=== PATIENT | male | born 1955 | race Caucasian/White ===

== ENCOUNTER → 2021-08-19 10:42 | Outpatient (CLI) | payer SELFPAY ==
[2021-08-19 12:09] LABS: COVID19 -Nasal RAPID Negative (Negative)
== END ==
PROVIDERS: Referring Provider Nurse Practitioner Family; Visit Provider Nurse Practitioner Family
DX: Z20.822 Contact with and (suspected) exposure to COVID-19 (principal)
CPT/HCPCS: 87635

== ENCOUNTER 2021-08-19 11:19 | Observation (INO) | payer OTHER, SELFPAY ==
[2021-08-19] VITALS (29 sets, daily range): BP systolic 145–202; BP diastolic 93–134; PULSE 86–115; RESP 14–38; TEMP 36.2–37.1; O2SAT 91–100; BMI 30.2
--- NOTE | 2021-08-19 11:44 | DI.RAD.S_ITS ---
PROCEDURE: XR CHEST 2V INDICATIONS: shortness of breath TECHNIQUE: 2 views of the chest were acquired. COMPARISON: None. FINDINGS: Surgical changes and devices: None. Lungs and pleura: Prominence of the pulmonary vasculature, which may reflect congestion. No consolidation, pleural effusions or pneumothorax. Mediastinum: Enlargement of cardiac silhouette, compatible cardiomegaly. Calcified atheromatous change of the aorta. Bones and chest wall: No suspicious bony abnormalities. Soft tissues appear unremarkable. IMPRESSION: Cardiomegaly with pulmonary vascular congestion. Dictated by: Mika Tanner M.D. on 08/19/2021 at 12:52 Approved by: Mika Tanner M.D. on 08/19/2021 at 12:53
[2021-08-19 12:02] LABS: Add Manual Diff / Slide Review NO; Basophils Absolute Auto 0 /uL (0-100); Basophils Percent Auto 0.4 % (0-2); Eosinophils Absolute Auto 100 /uL (0-450); Eosinophils Percent Auto 1.1 % (2-4); Hematocrit 45.9 % (41-53); Hemoglobin 14.9 g/dL (13.5-17.5); Lymphocytes Absolute Auto 1400 /uL (1100-4500); Lymphocytes Percent Auto 17.9 % (25-40); Mean Corpuscular HGB Conc 32.5 % (30-36); Mean Corpuscular Hemoglobin 29.2 PG (26-34); Mean Corpuscular Volume 89.9 fL (80-100); Monocytes Absolute Auto 900 /uL (0-900); Monocytes Percent Auto 11.3 % (3-14); Neutrophils Absolute Auto 5400 /uL (1500-7000); Neutrophils Percent Auto 69.3 % (50-75); Platelet Count 196 X10^3/uL (150-400); Red Blood Cell Count 5.11 X10^6/uL (4.5-5.9); Red Cell Distribution Width 14.6 % (11.6-14.8); White Blood Cell Count 7.8 X10^3/uL (4.5-11.0)
[2021-08-19 12:21] LABS: Alanine Aminotransferase 82 IU/L (<50); Albumin 4.5 g/dL (3.5-5.0); Albumin Globulin Ratio 1.5 (1.0-2.8); Alkaline Phosphatase 77 U/L (38-126); Aspartate Aminotransferase 78 IU/L (17-59); BUN Creatinine Ratio 21.4 (6-22); Bilirubin Total 0.7 mg/dL (0.2-1.3); Blood Urea Nitrogen 22 mg/dL (9-20); Calcium 9.4 mg/dL (8.4-10.2); Carbon Dioxide 28 mmol/L (22-32); Chloride 102 mmol/L (98-107); Estimated Glomerular Filt Rate > 60.0 mL/min (>60); Globulin 3.1 g/dL (1.7-4.1); Glucose 110 mg/dL (80-110); HEMOLYSIS < 15 (0-50); Potassium 4.4 mmol/L (3.4-5.1); Sodium 139 mmol/L (137-145); Total Protein 7.6 g/dL (6.3-8.2)
[2021-08-19 12:22] LABS: Lactate (Lactic Acid) 1.1 mmol/L (0.7-2.1)
[2021-08-19 12:29] LABS: NT-proBNP (BNP-Adult 18+) 4210 pg/mL (<125)
[2021-08-19 12:31] LABS: COVID19 -Nasal RAPID Negative (Negative)
--- NOTE | 2021-08-19 12:57 | ED.SOB ---
HPI - SOB/Dyspnea <Lynette Segal PA-C - Last Filed: 08/19/21 19:02> General Chief Complaint: Shortness of Breath/Dyspnea Stated Complaint: Trouble breathing, high BP Time Seen by Provider: 08/19/21 12:03 Source: patient Mode of arrival: Ambulatory Limitations: no limitations History of Present Illness HPI Narrative: 66-year-old male with no reported past medical history, presents to the ED with 5 days of shortness of breath. Patient states that he has not seen a doctor the last 20 years, has experienced worsening shortness of breath over the last 2 years, significantly worse in the last 4-5 days. Patient also endorses bilateral leg swelling, right greater than left. Denies fever, chills, chest pain, nausea, vomiting, abdominal pain, dysuria, flank pain, lightheadedness, dizziness, syncope. Patient states that he uses a albuterol inhaler 2 times daily for wheezing, which is given to him by someone else. He reports minimal relief from the albuterol. Patient was a long-time smoker for 30 years, quit 20 years ago. Related Data Home Medications Medication Instructions Recorded Confirmed No Known Home Medications 08/19/21 08/19/21 Allergies Allergy/AdvReac Type Severity Reaction Status Date / Time No Known Drug Allergies Allergy Verified 08/19/21 11:31 Review of Systems <Lynette Segal PA-C - Last Filed: 08/19/21 19:02> Constitutional Constitutional: Denies chills, Reports fatigue, Denies fever(s), Denies frequent falls, Denies lethargy and Denies weakness Eyes Eyes: Denies change in vision, Denies eye discharge, Denies irritation and Denies loss of vision ENT Ears, Nose, Mouth, and Throat: Denies change in voice, Denies dizziness, Denies neck pain, Denies sore throat and Denies throat swelling Cardiovascular Cardiovascular: Denies chest pain, Denies irregular heart rhythm, Reports lightheadedness, Denies palpitations, Reports dyspnea, Reports dyspnea on exertion and Reports orthopnea Respiratory Respiratory: Reports cough (Dry cough), Reports dyspnea, Reports dyspnea on exertion and Denies wheezing Gastrointestinal Gastrointestinal: Denies abdominal pain, Denies change in bowel habits, Denies diarrhea, Denies nausea and Denies vomiting Musculoskeletal Musculoskeletal: Denies neck pain and Denies numbness Integumentary/Breasts Skin/Breast: Denies pruritus, Denies erythema, Denies rash and Denies wounds Neurologic Neurologic: Denies behavioral changes, Denies confusion, Denies dizziness, Denies frequent falls, Denies loss of vision, Denies numbness and Denies weakness Psychiatric Psychiatric: Denies anxiety, Denies behavioral changes, Denies confusion, Denies depression, Denies homicidal ideation and Denies suicidal ideation Endocrine Endocrine: Reports fatigue, Denies flushing and Denies palpitations Hematologic/Lymphatic Hematologic/Lymphatic: Denies easy bruising Allergic/Immunologic Allergic/Immunologic: Denies urticaria, Denies throat swelling and Denies wheezing Patient History <Lynette Segal PA-C - Last Filed: 08/19/21 19:02> Social History Smoking Status: Unknown if ever smoked Smoking Status: Unknown if ever smoked alcohol intake frequency: 3 or more drinks per day Substance Use Type: marijuana Exam <Lynette Segal PA-C - Last Filed: 08/19/21 19:02> Narrative Exam Narrative: Patient sitting upright in bed, some work of breathing on room air. Able to speak in complete full sentences Initial Vital Signs Initial Vital Signs: Vital Signs Temperature 98.8 F 08/19/21 11:29 Pulse Rate 110 H 08/19/21 11:29 Respiratory Rate 25 H 08/19/21 11:29 Blood Pressure 182/93 H 08/19/21 11:29 Pulse Oximetry 94 08/19/21 11:29 Const General: cooperative HENMT Head: normocephalic and atraumatic Ears: external ears normal and TM's normal bilaterally Nose: external nose normal and No nasal discharge Face and sinus: sinuses nontender, face symmetric, no sinus tenderness and No dry mucous membranes Mouth: oral mucosae normal and moist mucous membranes Teeth and gingiva: dentition normal Throat: tonsils normal and uvula midline Eyes General: appearance normal, both eyes and all related structures Eyelids: eyelids normal Conjunctivae: conjunctivae normal Sclera: sclerae normal Pupils: PERRL EOM: EOM intact bilaterally Neck Neck: normal visual inspection, trachea midline, No lymphadenopathy, No midline deformity and No JVD Lymphatic: No lymphedema Chest Chest: normal inspection of the chest Resp Effort & Inspection: normal respiratory effort, able to speak in complete sentences, no respiratory distress and no use of accessory muscles Auscultation: clear to auscultation bilaterally, no rales, no rhonchi and no wheezes Other: Bilateral breath sounds, moving air in and out, no wheezing, no crackles. Cardio Rate: tachycardic Rhythm: regular rhythm Heart Sounds: no click, no gallops, no murmurs and no rubs Pulses: normal peripheral pulses GI Inspection: non-distended Palpation: soft, no hepatosplenomegaly, No guarding, No pulsatile mass and No tender Auscultation: normal bowel sounds Back/Spine/Pelvis Back: No CVA tenderness Cervical Spine: cervical ROM normal and No pain with cervical ROM Thoracic/Lumbar Spine: thoracic and lumbar spine normal to inspection Skin General: no rashes or lesions noted, No jaundice and No petechiae Neuro General: patient alert, patient oriented x3, gait normal and no focal motor deficits Speech: speech normal Extrem General: full ROM, no clubbing, cyanosis or edema, no pedal edema and no calf tenderness Other: Pitting edema bilaterally, right greater than left. Neurovascularly intact. Psych Appearance: well kempt Mental Status: mental status grossly normal Attitude: cooperative Thought Content: normal and suicidality Judgment: judgment good <Jonah Farrell DO - Last Filed: 08/19/21 19:05> Initial Vital Signs Initial Vital Signs: Vital Signs Temperature 98.8 F 08/19/21 11:29 Pulse Rate 110 H 08/19/21 11:29 Respiratory Rate 25 H 08/19/21 11:29 Blood Pressure 182/93 H 08/19/21 11:29 Pulse Oximetry 94 08/19/21 11:29 Course <Lynette Segal PA-C - Last Filed: 08/19/21 19:02> Course Course Narrative: NT proBNP elevated to 4210 indicative of acute CHF. Will trial a treatment with albuterol, ipratropium via nebulizer. Will give Lasix 40 mg IV. Troponin elevated to 0.064, possibly NSTEMI. Ordered 325 mg aspirin PO. Patient is negative 2 L post the Lasix. Chest x-ray shows pulmonary vascular congestion. CT shows possible emphysema. No evidence of DVT or PE on ultrasound or CT. Cardiology Dr. Alexander consulted. Cardiology favors a diagnosis of CHF over NSTEMI, given patient's workup, symptoms. Recommendation to continue diuresis with Lasix, echo, possibly stress test, trend stroke, trend electrolytes, admit to inpatient. Hospitalist Dr. Willoughby consulted, patient will be admitted to inpatient. Orders Ordered: ED Orders 08/19/21 11:43 EKG-12 Lead Stat 08/19/21 11:44 XR chest 2V Stat RT Consult Eval and Treat Now 08/19/21 11:50 Complete Blood Count AUTO DIFF Stat Comprehensive Metabolic Panel Stat D Dimer Stat Lactate (Lactic Acid) Stat NT-proBNP (BNP-Adult 18+) Stat Troponin I Stat 08/19/21 12:05 COVID19 -Nasal swab/Pre-Proc Stat 08/19/21 13:26 CT angio chest PE protocol Stat 08/19/21 13:27 US periph venous low extrem bi Stat 08/19/21 18:47 Troponin I Stat Discontinued Medications Albuterol/Ipratropium (Albuterol/Ipratropium 3 Ml Ampul) 3 ml INH NOW ONE Stop: 08/19/21 12:52 Last Admin: 08/19/21 13:26 Dose: 3 ml Documented by: ARMAND Aspirin (Aspirin 325 Mg Tablet) 325 mg PO NOW ONE Stop: 08/19/21 13:39 Last Admin: 08/19/21 14:29 Dose: 325 mg Documented by: MATT Furosemide (Furosemide 40 Mg/4 Ml Vial) 40 mg IV NOW ONE Stop: 08/19/21 12:52 Last Admin: 08/19/21 13:04 Dose: 40 mg Documented by: WHITNEY Vital Signs Vital signs: Vital Signs - 8 hr 08/19/21 11:29 08/19/21 11:39 08/19/21 11:55 Temperature 98.8 F Pulse Rate 110 H 115 H 110 H Respiratory Rate 25 H 14 Blood Pressure 182/93 H 180/98 H Pulse Oximetry 94 94 97 08/19/21 12:00 08/19/21 12:23 08/19/21 12:30 Temperature Pulse Rate 106 H 109 H 107 H Respiratory Rate 26 H 23 Blood Pressure 189/104 H 176/107 H 170/96 H Pulse Oximetry 98 98 99 08/19/21 13:00 08/19/21 13:30 08/19/21 13:33 Temperature Pulse Rate 106 H 107 H 106 H Respiratory Rate 14 31 H 18 Blood Pressure 177/134 H 202/125 H Pulse Oximetry 98 97 97 08/19/21 14:26 08/19/21 14:30 Temperature Pulse Rate 101 H 86 Respiratory Rate Blood Pressure Pulse Oximetry 97 94 <Jonah Farrell DO - Last Filed: 08/19/21 19:05> Orders Ordered: ED Orders 08/19/21 11:43 EKG-12 Lead Stat 08/19/21 11:44 XR chest 2V Stat RT Consult Eval and Treat Now 08/19/21 11:50 Complete Blood Count AUTO DIFF Stat Comprehensive Metabolic Panel Stat D Dimer Stat Lactate (Lactic Acid) Stat NT-proBNP (BNP-Adult 18+) Stat Troponin I Stat 08/19/21 12:05 COVID19 -Nasal swab/Pre-Proc Stat 08/19/21 13:26 CT angio chest PE protocol Stat 08/19/21 13:27 US periph venous low extrem bi Stat 08/19/21 18:47 Troponin I Stat Discontinued Medications Albuterol/Ipratropium (Albuterol/Ipratropium 3 Ml Ampul) 3 ml INH NOW ONE Stop: 08/19/21 12:52 Last Admin: 08/19/21 13:26 Dose: 3 ml Documented by: ARMAND Aspirin (Aspirin 325 Mg Tablet) 325 mg PO NOW ONE Stop: 08/19/21 13:39 Last Admin: 08/19/21 14:29 Dose: 325 mg Documented by: MATT Furosemide (Furosemide 40 Mg/4 Ml Vial) 40 mg IV NOW ONE Stop: 08/19/21 12:52 Last Admin: 08/19/21 13:04 Dose: 40 mg Documented by: WHITNEY Vital Signs Vital signs: Vital Signs - 8 hr 08/19/21 11:29 08/19/21 11:39 08/19/21 11:55 Temperature 98.8 F Pulse Rate 110 H 115 H 110 H Respiratory Rate 25 H 14 Blood Pressure 182/93 H 180/98 H Pulse Oximetry 94 94 97 08/19/21 12:00 08/19/21 12:23 08/19/21 12:30 Temperature Pulse Rate 106 H 109 H 107 H Respiratory Rate 26 H 23 Blood Pressure 189/104 H 176/107 H 170/96 H Pulse Oximetry 98 98 99 08/19/21 13:00 08/19/21 13:30 08/19/21 13:33 Temperature Pulse Rate 106 H 107 H 106 H Respiratory Rate 14 31 H 18 Blood Pressure 177/134 H 202/125 H Pulse Oximetry 98 97 97 08/19/21 14:26 08/19/21 14:30 Temperature Pulse Rate 101 H 86 Respiratory Rate Blood Pressure Pulse Oximetry 97 94 MDM - SOB/Dyspnea <Hyma CRISSY Segal - Last Filed: 08/19/21 19:02> Lab Data Attestation: I reviewed the patient's lab results. Lab results narrative: NT proBNP elevated to 4210. Troponin elevated to 0.064 Result diagrams: 08/19/21 11:50 08/19/21 11:50 Labs: Lab Results 08/19/21 08/19/21 08/19/21 Range/Units 11:50 11:50 11:50 WBC 7.8 (4.5-11.0) X10^3/uL RBC 5.11 (4.5-5.9) X10^6/uL Hgb 14.9 (13.5-17.5) g/dL Hct 45.9 (41-53) % MCV 89.9 (80-100) fL MCH 29.2 (26-34) PG MCHC 32.5 (30-36) % RDW 14.6 (11.6-14.8) % Plt Count 196 (150-400) X10^3/uL Neut % (Auto) 69.3 (50-75) % Lymph % (Auto) 17.9 L (25-40) % Lanier % (Auto) 11.3 (3-14) % Eos % (Auto) 1.1 L (2-4) % Baso % (Auto) 0.4 (0-2) % Neut # (Auto) 5400 (8832-8226) /uL Lymph # (Auto) 1400 (1088-5428) /uL Lanier # (Auto) 900 (0-900) /uL Eos # (Auto) 100 (0-450) /uL Baso # (Auto) 0 (0-100) /uL D-Dimer (<230) ng/mL Sodium 139 (137-145) mmol/L Potassium 4.4 (3.4-5.1) mmol/L Chloride 102 (98-107) mmol/L Carbon Dioxide 28 (22-32) mmol/L BUN 22 H (9-20) mg/dL Creatinine 1.03 (0.66-1.25) mg/dL Estimated GFR > 60.0 (>60) mL/min BUN/Creatinine Ratio 21.4 (6-22) Glucose 110 (80-110) mg/dL Lactate 1.1 (0.7-2.1) mmol/L Calcium 9.4 (8.4-10.2) mg/dL Total Bilirubin 0.7 (0.2-1.3) mg/dL AST 78 H (17-59) IU/L ALT 82 H (<50) IU/L Alkaline Phosphatase 77 (38-126) U/L Troponin I (0.01-0.034) ng/mL NT-Pro-B Natriuret Pep 4210 H (<125) pg/mL Total Protein 7.6 (6.3-8.2) g/dL Albumin 4.5 (3.5-5.0) g/dL Globulin 3.1 (1.7-4.1) g/dL Albumin/Globulin Ratio 1.5 (1.0-2.8) SARS-CoV-2 (PCR) (Negative) 08/19/21 08/19/21 08/19/21 Range/Units 11:50 11:50 12:05 WBC (4.5-11.0) X10^3/uL RBC (4.5-5.9) X10^6/uL Hgb (13.5-17.5) g/dL Hct (41-53) % MCV (80-100) fL MCH (26-34) PG MCHC (30-36) % RDW (11.6-14.8) % Plt Count (150-400) X10^3/uL Neut % (Auto) (50-75) % Lymph % (Auto) (25-40) % Lanier % (Auto) (3-14) % Eos % (Auto) (2-4) % Baso % (Auto) (0-2) % Neut # (Auto) (5225-7664) /uL Lymph # (Auto) (4616-6391) /uL Lanier # (Auto) (0-900) /uL Eos # (Auto) (0-450) /uL Baso # (Auto) (0-100) /uL D-Dimer 483 H (<230) ng/mL Sodium (137-145) mmol/L Potassium (3.4-5.1) mmol/L Chloride (98-107) mmol/L Carbon Dioxide (22-32) mmol/L BUN (9-20) mg/dL Creatinine (0.66-1.25) mg/dL Estimated GFR (>60) mL/min BUN/Creatinine Ratio (6-22) Glucose (80-110) mg/dL Lactate (0.7-2.1) mmol/L Calcium (8.4-10.2) mg/dL Total Bilirubin (0.2-1.3) mg/dL AST (17-59) IU/L ALT (<50) IU/L Alkaline Phosphatase (38-126) U/L Troponin I 0.064 H (0.01-0.034) ng/mL NT-Pro-B Natriuret Pep (<125) pg/mL Total Protein (6.3-8.2) g/dL Albumin (3.5-5.0) g/dL Globulin (1.7-4.1) g/dL Albumin/Globulin Ratio (1.0-2.8) SARS-CoV-2 (PCR) Negative (Negative) Imaging Data Chest x-ray: Radiologist's Impression: PROCEDURE:? XR CHEST 2V ? INDICATIONS:? shortness of breath ? TECHNIQUE:? 2 views of the chest were acquired.? ? COMPARISON:? None. ? FINDINGS:? ? Surgical changes and devices:? None.? ? Lungs and pleura:? Prominence of the pulmonary vasculature, which may reflect congestion. ?No consolidation, pleural effusions or pneumothorax.? ? Mediastinum:? Enlargement of cardiac silhouette, compatible cardiomegaly.? Calcified atheromatous change of the aorta.? ? Bones and chest wall:? No suspicious bony abnormalities.? Soft tissues appear unremarkable.? ? IMPRESSION:? Cardiomegaly with pulmonary vascular congestion. ? ? Dictated by: Mika Tanner M.D. on 08/19/2021 at 12:52 ? ? Approved by: Mika Tanner M.D. on 08/19/2021 at 12:53 ? CT scan - chest: Radiologist's Impression: PROCEDURE:? CT ANGIO CHEST PE PROTOCOL ? INDICATIONS:? Shortness of breath ? TECHNIQUE:? After the administration of intravenous contrast, 2 mm thick sections acquired from the pulmonary apices to the posterior costophrenic angles.? 3-dimensional maximum intensity projection (MIP) coronal and sagittal reformats were then acquired through the thorax.? For radiation dose reduction, the following was used:? automated exposure control, adjustment of mA and/or kV according to patient size.? ? COMPARISON:? None. ? FINDINGS:? Image quality:? Excellent.? ? Pulmonary arteries:? Pulmonary arteries are normal in size, and demonstrate no intraluminal filling defects to suggest central pulmonary embolism.? ? Lungs and pleura:? [id number] centrilobular emphysema.? Lungs are clear.? No pleural effusions or pneumothorax.? Central and peripheral airways are patent.? ? Mediastinum:? Heart size is mildly enlarged, without pericardial effusion.? No mediastinal or hilar adenopathy.? The ascending aorta is aneurysmally dilated, measuring 4.6 cm. Esophagus is normal in caliber, without hiatal hernia.? ? Bones and chest wall:? No suspicious bony lesions.? Ribs and thoracic spine appear intact throughout.? Thyroid gland is unremarkable.? No axillary or supraclavicular adenopathy.? ? Abdomen:? Visualized upper abdominal solid organs appear normal in the early arterial phase of enhancement.? ? IMPRESSION:? ? 1. No evidence acute pulmonary emboli. ? 2. No evidence acute pulmonary process. ? 3. [id number] centrilobular emphysema. ? 3. Mild cardiomegaly. ? 4. Aneurysmal dilatation of the ascending aorta.? ? ? Dictated by: Jamel Morales M.D. on 08/19/2021 at 13:59 ? ? Approved by: Jamel Morales M.D. on 08/19/2021 at 14:07 ? US - DVT: Radiologist's Impression: PROCEDURE:? US PERIPH VENOUS LOW EXTREM BI ? INDICATIONS:? Shortness of breath; EDEMA ? TECHNIQUE:? Real-time imaging, as well as color and pulse Doppler interrogation, were performed of the deep veins of both legs from the inguinal ligament to the popliteal fossa.? ? COMPARISON:? [facility], CT, CT ANGIO CHEST PE PROTOCOL, 08/19/2021, 13:48. ? FINDINGS:? ? Right: The common femoral, femoral and popliteal veins are normally compressible, and free of intraluminal thrombus.? Color and pulse Doppler demonstrate normal phasic intravascular flow.? There is normal augmentation response to distal compression maneuver.? ? Left: The common femoral, femoral and popliteal veins are normally compressible, and free of intraluminal thrombus.? Color and pulse Doppler demonstrate normal phasic intravascular flow.? There is normal augmentation response to distal compression maneuver.? ? ? IMPRESSION:? ? Negative for deep venous thrombosis. ? ? Dictated by: Gregory Blanco M.D. on 08/19/2021 at 13:53 ? ? Approved by: Gregory Blanco M.D. on 08/19/2021 at 13:53 ? ECG Data Interpretation: Sinus tachycardia with PVCs, no axis deviation, no ST-T changes. MDM Narrative Medical decision making narrative: 66-year-old male with no reported past medical history, presents to the ED with 5 days of shortness of breath. Patient states that he has not seen a doctor the last 20 years, has experienced worsening shortness of breath over the last 2 years, significantly worse in the last 4-5 days. Concern for congestive heart failure versus ACS versus PE versus pneumonia versus COVID 19. Will order labs, chest x-ray, EKG, troponin, dimer, BNP. Will reassess. <Jonah Farrell DO - Last Filed: 08/19/21 19:05> Lab Data Labs: Lab Results 08/19/21 08/19/21 08/19/21 Range/Units 11:50 11:50 11:50 WBC 7.8 (4.5-11.0) X10^3/uL RBC 5.11 (4.5-5.9) X10^6/uL Hgb 14.9 (13.5-17.5) g/dL Hct 45.9 (41-53) % MCV 89.9 (80-100) fL MCH 29.2 (26-34) PG MCHC 32.5 (30-36) % RDW 14.6 (11.6-14.8) % Plt Count 196 (150-400) X10^3/uL Neut % (Auto) 69.3 (50-75) % Lymph % (Auto) 17.9 L (25-40) % Lanier % (Auto) 11.3 (3-14) % Eos % (Auto) 1.1 L (2-4) % Baso % (Auto) 0.4 (0-2) % Neut # (Auto) 5400 (2342-0771) /uL Lymph # (Auto) 1400 (5225-7429) /uL Lanier # (Auto) 900 (0-900) /uL Eos # (Auto) 100 (0-450) /uL Baso # (Auto) 0 (0-100) /uL D-Dimer (<230) ng/mL Sodium 139 (137-145) mmol/L Potassium 4.4 (3.4-5.1) mmol/L Chloride 102 (98-107) mmol/L Carbon Dioxide 28 (22-32) mmol/L BUN 22 H (9-20) mg/dL Creatinine 1.03 (0.66-1.25) mg/dL Estimated GFR > 60.0 (>60) mL/min BUN/Creatinine Ratio 21.4 (6-22) Glucose 110 (80-110) mg/dL Lactate 1.1 (0.7-2.1) mmol/L Calcium 9.4 (8.4-10.2) mg/dL Total Bilirubin 0.7 (0.2-1.3) mg/dL AST 78 H (17-59) IU/L ALT 82 H (<50) IU/L Alkaline Phosphatase 77 (38-126) U/L Troponin I (0.01-0.034) ng/mL NT-Pro-B Natriuret Pep 4210 H (<125) pg/mL Total Protein 7.6 (6.3-8.2) g/dL Albumin 4.5 (3.5-5.0) g/dL Globulin 3.1 (1.7-4.1) g/dL Albumin/Globulin Ratio 1.5 (1.0-2.8) SARS-CoV-2 (PCR) (Negative) 08/19/21 08/19/21 08/19/21 Range/Units 11:50 11:50 12:05 WBC (4.5-11.0) X10^3/uL RBC (4.5-5.9) X10^6/uL Hgb (13.5-17.5) g/dL Hct (41-53) % MCV (80-100) fL MCH (26-34) PG MCHC (30-36) % RDW (11.6-14.8) % Plt Count (150-400) X10^3/uL Neut % (Auto) (50-75) % Lymph % (Auto) (25-40) % Lanier % (Auto) (3-14) % Eos % (Auto) (2-4) % Baso % (Auto) (0-2) % Neut # (Auto) (1210-4694) /uL Lymph # (Auto) (3231-3273) /uL Lanier # (Auto) (0-900) /uL Eos # (Auto) (0-450) /uL Baso # (Auto) (0-100) /uL D-Dimer 483 H (<230) ng/mL Sodium (137-145) mmol/L Potassium (3.4-5.1) mmol/L Chloride (98-107) mmol/L Carbon Dioxide (22-32) mmol/L BUN (9-20) mg/dL Creatinine (0.66-1.25) mg/dL Estimated GFR (>60) mL/min BUN/Creatinine Ratio (6-22) Glucose (80-110) mg/dL Lactate (0.7-2.1) mmol/L Calcium (8.4-10.2) mg/dL Total Bilirubin (0.2-1.3) mg/dL AST (17-59) IU/L ALT (<50) IU/L Alkaline Phosphatase (38-126) U/L Troponin I 0.064 H (0.01-0.034) ng/mL NT-Pro-B Natriuret Pep (<125) pg/mL Total Protein (6.3-8.2) g/dL Albumin (3.5-5.0) g/dL Globulin (1.7-4.1) g/dL Albumin/Globulin Ratio (1.0-2.8) SARS-CoV-2 (PCR) Negative (Negative) Discharge Plan Departure Patient Disposition: Admitted As Inpatient Clinical Impression: Congestive heart failure Qualifiers: Heart failure type: unspecified Heart failure chronicity: acute Qualified Code(s): I50.9 - Heart failure, unspecified Admit Date/Time: 08/19/21 18:44 Admit Provider: Keny Du <Jonah Lanker, DO - Last Filed: 08/19/21 19:05> Cosign ED Attending Cosignature Attestation: Dr Farrell Co-Sign Statement: I was available for consultation during this patient's emergency department visit. This chart is signed by myself for administrative purposes only. I did not have direct contact with this patient during this visit. They were seen independently by the APC.
[2021-08-19] MEDS: FUROSEMIDE 40 MG/4 ML VIAL IV (13:04)
[2021-08-19 13:22] LABS: D Dimer 483 ng/mL (<230)
[2021-08-19 13:24] LABS: Troponin I 0.064 ng/mL (0.01-0.034)
[2021-08-19] MEDS: ALBUTEROL/IPRATROPIUM 3 ML AMPUL INH ×2 (13:26→22:35)
--- NOTE | 2021-08-19 13:26 | DI.CT.S_ITS ---
PROCEDURE: CT ANGIO CHEST PE PROTOCOL INDICATIONS: Shortness of breath TECHNIQUE: After the administration of intravenous contrast, 2 mm thick sections acquired from the pulmonary apices to the posterior costophrenic angles. 3-dimensional maximum intensity projection (MIP) coronal and sagittal reformats were then acquired through the thorax. For radiation dose reduction, the following was used: automated exposure control, adjustment of mA and/or kV according to patient size. COMPARISON: None. FINDINGS: Image quality: Excellent. Pulmonary arteries: Pulmonary arteries are normal in size, and demonstrate no intraluminal filling defects to suggest central pulmonary embolism. Lungs and pleura: [id number] centrilobular emphysema. Lungs are clear. No pleural effusions or pneumothorax. Central and peripheral airways are patent. Mediastinum: Heart size is mildly enlarged, without pericardial effusion. No mediastinal or hilar adenopathy. The ascending aorta is aneurysmally dilated, measuring 4.6 cm. Esophagus is normal in caliber, without hiatal hernia. Bones and chest wall: No suspicious bony lesions. Ribs and thoracic spine appear intact throughout. Thyroid gland is unremarkable. No axillary or supraclavicular adenopathy. Abdomen: Visualized upper abdominal solid organs appear normal in the early arterial phase of enhancement. IMPRESSION: 1. No evidence acute pulmonary emboli. 2. No evidence acute pulmonary process. 3. Amqy-[id number] centrilobular emphysema. 3. Mild cardiomegaly. 4. Aneurysmal dilatation of the ascending aorta. Dictated by: Jamel Morales M.D. on 08/19/2021 at 13:59 Approved by: Jamel Morales M.D. on 08/19/2021 at 14:07
--- NOTE | 2021-08-19 13:27 | DI.US.S_ITS ---
PROCEDURE: US PERIPH VENOUS LOW EXTREM BI INDICATIONS: Shortness of breath; EDEMA TECHNIQUE: Real-time imaging, as well as color and pulse Doppler interrogation, were performed of the deep veins of both legs from the inguinal ligament to the popliteal fossa. COMPARISON: [facility], CT, CT ANGIO CHEST PE PROTOCOL, 08/19/2021, 13:48. FINDINGS: Right: The common femoral, femoral and popliteal veins are normally compressible, and free of intraluminal thrombus. Color and pulse Doppler demonstrate normal phasic intravascular flow. There is normal augmentation response to distal compression maneuver. Left: The common femoral, femoral and popliteal veins are normally compressible, and free of intraluminal thrombus. Color and pulse Doppler demonstrate normal phasic intravascular flow. There is normal augmentation response to distal compression maneuver. IMPRESSION: Negative for deep venous thrombosis. Dictated by: Gregory Blanco M.D. on 08/19/2021 at 13:53 Approved by: Gregory Blanco M.D. on 08/19/2021 at 13:53
[2021-08-19] MEDS: ASPIRIN 325 MG TABLET PO (14:29)
[2021-08-19 19:19] LABS: Troponin I 0.069 ng/mL (0.01-0.034)
--- NOTE | 2021-08-19 21:49 | DI.ECHO.S_ITS ---
[place] [facility]---------+ [facility] +---------+ : : [address] : : : : [id number] : : : : Phone: [phone]+ Echocardiogram Report + + :Name: PITER HOYOS Study Date: 08/21/2021 Height: 70 in : :[facility] ReadingLocation: Weight: 211 lb : : Gender: Male BSA: 2.1 m2 : :: 1955 Age: 66 yrs BP: 156/90 mmHg: :Reason For Study: CONGESTIVE HEART FAILURE : :Ordering Physician: SONY, : :FELICITAS Performed By: Erin Bragg : :Referring: FELICITAS CARDOZA : + + Interpretation Summary The left ventricle is moderately dilated. Left ventricular systolic function is moderately reduced. The ejection fraction is estimated to be 30-35%. There are multiple LV wall motion abnormalities. There is preserved septal and part of anterior and apical wall motion. The rest of LV segments are moderate to severely hypokinetic. No prior echo for comparison. Diastolic parameters suggest a restrictive filling pattern consistent with probable significantly elevated filling pressures. Findings are consistent with ischemic cardiomyopathy. The right ventricle is mild to moderately dilated. The right ventricular systolic function is normal. The right ventricular systolic pressure is estimated to be at least 52 mmHg based on an estimated right atrial pressure of 8 mm Hg. The left atrium is severely dilated. The right atrium is mildly dilated. There is moderate mitral regurgitation. Evaluation of regurgitation is inadequate due to eccentric jet. There is mild to moderate aortic regurgitation. The ascending aorta is moderately enlarged. The aortic root is mildly dilated. There was a short run of SVT as well. Procedure: A two-dimensional transthoracic echocardiogram with color flow and Doppler was performed. The study quality was technically adequate. There is no prior echocardiogram noted for this patient. The patient was in sinus rhythm with heart rates between 72-85 bpm during the exam. Left Ventricle: The left ventricle is moderately dilated. The estimated left ventricular end diastolic volume is 186 ml. There is normal left ventricular wall thickness. Left ventricular systolic function is moderately reduced. The ejection fraction is estimated to be 30-35%. There are multiple LV wall motion abnormalities. There is preserved septal and part of anterior and apical wall motion. The rest of LV segments are moderate to severely hypokinetic. No prior echo for comparison. Diastolic parameters suggest a restrictive filling pattern consistent with probable significantly elevated filling pressures. Right Ventricle: The right ventricle is mild to moderately dilated. The right ventricular systolic function is normal. Atria: The left atrium is severely dilated. The right atrium is mildly dilated. There is no Doppler evidence for an interatrial shunt. Mitral Valve: The mitral valve leaflets appear mildly thickened, but open well. There is moderate mitral regurgitation. Evaluation of regurgitation is inadequate. Aortic Valve: The aortic valve is trileaflet. The aortic valve opens well. There is no aortic valve stenosis. There is mild to moderate aortic regurgitation. Tricuspid Valve: The tricuspid valve leaflets are thin and pliable. There is mild tricuspid regurgitation. The right ventricular systolic pressure is estimated to be at least 52 mmHg based on an estimated right atrial pressure of 8 mm Hg. Pulmonic Valve: The pulmonic valve is not well visualized. There is mild pulmonic regurgitation. Great Vessels: The aortic root is mildly dilated. The ascending aorta is moderately enlarged. The IVC is dilated (diameter is greater than 2.1 cm) yet it collapses greater than 50% with a sniff. This suggests a right atrial pressure of 8 mm Hg. Pericardium/ Pleura There is no pericardial effusion. There is no pleural effusion. MMode/2D Measurements & Calculations LVIDd: 6.9 cm LVOT diam: 2.3 cm LVIDs: 5.7 cm Ao root diam: 4.1 cm FS: 16.3 % asc Aorta Diam: 4.7 cm EPSS: 1.9 cm Ao Arch Diam (Prox Trans): 2.8 cm IVSd: 0.90 cm LVPWd: 1.1 cm LV duval. diameter/BSA (cm/m^2): 3.2 LV sys. diameter/BSA (cm/m^2): 2.7 LA A2 area: 34.3 cm2 RA long axis: 5.1 cm LA A4 area: 34.0 cm2 RA area: 22.2 cm2 LA length (vol): 6.9 cm RA vol: 82.0 ml LA vol: 143.0 ml RA : 38.4 ml/m2 LA vol index: 67.0 ml/m2 IVC diam: 2.3 cm RVD1 (basal): 4.8 cm TAPSE: 1.8 cm Doppler Measurements & Calculations Ao V2 max: 118.2 cm/sec LVOT Max Lg: 70.8 cm/sec Ao V2 mean: 84.7 cm/sec LV V1 max P.0 mmHg Ao max P.6 mmHg LV V1 VTI: 12.5 cm Ao mean P.2 mmHg MARI(I,D): 2.5 cm2 Ao V2 VTI: 20.6 cm MARI(V,D): 2.5 cm2 sev ratio: 0.60 MARI indexed to BSA (cm^2/m^2): 1.2 AI P1/2t: 540.4 msec AI dec slope: 252.0 cm/sec2 MV E max lg: 88.6 cm/sec TR max lg: 333.3 cm/sec MV A max lg: 34.9 cm/sec TR max P.4 mmHg MV E/A: 2.5 PA V2 max: 86.4 cm/sec Med Peak E' Lg: 3.0 cm/sec PA V2 mean: 55.6 cm/sec E/E' med: 29.7 PA mean P.4 mmHg Lat Peak E' Lg: 7.9 cm/sec PA pr(Accel): 46.5 mmHg E/E' lat: 11.3 E/e' average: 20.5 MV dec time: 0.18 sec SV(LVOT): 52.3 ml Reading Physician:10:39 AM
--- NOTE | 2021-08-19 21:54 | PM.HP.1 ---
History of Present Illness History of Present Illness Date Patient Seen: 08/19/21 Time Patient Seen: 21:54 Chief complaint: Trouble breathing, high BP Narrative: The patient is a 66 y/o male with a history of hypertension, GERD, COPD who has not seen a doctor in over 20 years. He reports that he has had gradual onset of shortness of breath for over one year. He has albuterol which has been provided to him and uses it several times daily for his shortness of breath. Over the last five days his shortness of breath has gotten worse. He describes orthopnea, PND, anxiety secondary to inability to sleep or lie flat. He has noticed increased lower extremity edema. He denies chest pain, chest pressure, or palpitations. He has had no fever, chills, cough, loss of taste or smell. He was vaccinated against Covid-19 with Moderna and received both doses. He has had no prior hospitalizations. The patient was evaluated in the Emergency Department. He was found to have a Chest Xray which revealed cardiomegaly with pulmonary vascular congestion. D-dimer was elevated at [address] angio was negative for PE. CT Angio did show Mild to Moderate centrilobular emphysema. 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 His proBNP was elevated at 4210, and troponin's elevated at .064, and .069 subsequently. EKG reveals: Sinus tachycardia with occasional premature ventricular complexes Right bundle branch block , plus right ventricular hypertrophy Patient is admitted to the hospital for Shortness of breath. Patient History Medical History (Updated 08/19/21 @ 22:02 by Laura Sandoval MD) Emphysema lung GERD (gastroesophageal reflux disease) Hypertension Family & Social History Family History (Updated 08/19/21 @ 22:03 by Laura Sandoval MD) Father Diabetes mellitus Daughter Diabetes mellitus Social History: household members family Prior Living Arrangements House Safety & Behavioral: Feels Safe in Current Yes Environment Been Physically Hurt or No Threatened By a Person Suicidal Ideation Description None Suicide Plan Description No Plan Tobacco & Substance use: Smoking Status Unknown if ever smoked alcohol intake frequency 3 or more drinks per day Substance Use Type marijuana Meds Home Medications and Allergies Home Medications Medication Instructions Recorded Confirmed Type diphenhydramine HCl 50 mg capsule 50 mg PO BEDTIME 08/19/21 08/19/21 History Allergies Allergy/AdvReac Type Severity Reaction Status Date / Time No Known Drug Allergies Allergy Verified 08/19/21 11:31 Review of Systems Review of Systems Narrative: Mild headache, remaining 10 point review of systems is negative Exam Vital Signs (past 8 hours): - 08/19/21 14:26 08/19/21 14:30 08/19/21 15:00 Pulse Rate 101 H 86 98 H Respiratory Rate 22 Blood Pressure Pulse Oximetry 97 94 96 08/19/21 15:20 08/19/21 15:30 08/19/21 16:00 Pulse Rate 97 H 97 H 96 H Respiratory Rate 30 H 29 H Blood Pressure 145/93 H Pulse Oximetry 97 97 92 08/19/21 16:30 08/19/21 17:00 08/19/21 17:30 Pulse Rate 96 H 96 H 101 H Respiratory Rate 26 H 24 28 H Blood Pressure Pulse Oximetry 96 97 95 08/19/21 18:00 08/19/21 18:30 08/19/21 19:00 Pulse Rate 94 H 97 H 94 H Respiratory Rate 29 H 38 H 31 H Blood Pressure Pulse Oximetry 96 96 96 08/19/21 19:30 08/19/21 19:32 08/19/21 20:00 Pulse Rate 93 H 94 H 93 H Respiratory Rate 30 H 32 H Blood Pressure 155/93 H Pulse Oximetry 96 94 92 08/19/21 20:30 08/19/21 21:05 Pulse Rate 94 H 100 H Respiratory Rate 22 Blood Pressure 168/104 H Pulse Oximetry 93 91 Oxygen Delivery Method Nasal Cannula Oxygen Flow Rate 2.5 Narrative Exam Narrative: Pleasant gentleman resting comfortably in no acute distress HENMT Other: NC/AT, EOMI, Oropharyx: clear, Neck is supple, JVD is noted Eyes Other: EOMI, Anicteric, no exudates Neck Other: Supple without adenopathy, thyromegaly, JVD noted Resp Other: Decreased breath sounds bilaterally, occassional scattered crackles noted Cardio Other: RRR nl S1S2, +S3, occassional skipped beats GI Other: Soft/ non tender/ non distended/no hepatosplenomegaly no rebound tenderness, boardlike rigidity Skin Other: bruising of the left upper extremity Neuro Other: Non focal Extrem Other: 1-2+ edema bilaterally Psych Other: awake, alert, appropriate, mood appropriate, no hallucinations, normal thought processing and content Objective ECG Impression: Sinus tachycardia with occasional premature ventricular complexes Right bundle branch block , plus right ventricular hypertrophy Labs Result Diagrams: 08/19/21 11:50 08/19/21 11:50 Labs: Laboratory Results - last 24 hr 08/19/21 08/19/21 08/19/21 11:50 11:50 11:50 WBC 7.8 RBC 5.11 Hgb 14.9 Hct 45.9 MCV 89.9 MCH 29.2 MCHC 32.5 RDW 14.6 Plt Count 196 Neut % (Auto) 69.3 Lymph % (Auto) 17.9 L [place] % (Auto) 11.3 Eos % (Auto) 1.1 L Baso % (Auto) 0.4 Neut # (Auto) 5400 Lymph # (Auto) 1400 [place] # (Auto) 900 Eos # (Auto) 100 Baso # (Auto) 0 D-Dimer Sodium 139 Potassium 4.4 Chloride 102 Carbon Dioxide 28 BUN 22 H Creatinine 1.03 Estimated GFR > 60.0 BUN/Creatinine Ratio 21.4 Glucose 110 Lactate 1.1 Calcium 9.4 Total Bilirubin 0.7 AST 78 H ALT 82 H Alkaline Phosphatase 77 Troponin I NT-Pro-B Natriuret Pep 4210 H Total Protein 7.6 Albumin 4.5 Globulin 3.1 Albumin/Globulin Ratio 1.5 SARS-CoV-2 (PCR) 08/19/21 08/19/21 08/19/21 11:50 11:50 12:05 WBC RBC Hgb Hct MCV MCH MCHC RDW Plt Count Neut % (Auto) Lymph % (Auto) [place] % (Auto) Eos % (Auto) Baso % (Auto) Neut # (Auto) Lymph # (Auto) [place] # (Auto) Eos # (Auto) Baso # (Auto) D-Dimer 483 H Sodium Potassium Chloride Carbon Dioxide BUN Creatinine Estimated GFR BUN/Creatinine Ratio Glucose Lactate Calcium Total Bilirubin AST ALT Alkaline Phosphatase Troponin I 0.064 H NT-Pro-B Natriuret Pep Total Protein Albumin Globulin Albumin/Globulin Ratio SARS-CoV-2 (PCR) Negative 08/19/21 18:47 WBC RBC Hgb Hct MCV MCH MCHC RDW Plt Count Neut % (Auto) Lymph % (Auto) [place] % (Auto) Eos % (Auto) Baso % (Auto) Neut # (Auto) Lymph # (Auto) [place] # (Auto) Eos # (Auto) Baso # (Auto) D-Dimer Sodium Potassium Chloride Carbon Dioxide BUN Creatinine Estimated GFR BUN/Creatinine Ratio Glucose Lactate Calcium Total Bilirubin AST ALT Alkaline Phosphatase Troponin I 0.069 H NT-Pro-B Natriuret Pep Total Protein Albumin Globulin Albumin/Globulin Ratio SARS-CoV-2 (PCR) Assessment & Plan Assessment & Plan narrative: 66 y/o male with a history of hypertension, GERD, emphysema not seen by a MD for 20 years presents for increasing shortness of breath: -Shortness of breath is likely multifactorial -Patient with Acute CHF, given pulmonary edema, bilateral lower extremity edema, elevated probnp of 4210, orthopnea, and PND -CTA negative for PE, reveals centrilobular emphysema ( likely chronic) -agree with plan to diurese, continue lasix 20mg IV bid -will obtain cardiac echo -stress test ordered for tomorrow Hypertension -untreated and likely chronic -patient will start lisinopril 10 mg daily -continue diuresis which will improve blood pressure as well -heart healthy diet -needs outpatient PCP COPD -CT confirms centrilobular emphysema -patient with a history of smoking, quit 20 years ago -likely contributing to his shortness of breath -will start albuterl/atrovent nebs, would switch to inhaler at discharge -doubt acute exacerbation, suspect CHF playing more of a role at this time GERD -chronic -will start PPI Elevated Troponin -suspect demand ischemia as patient has no chest pain, EKG shows no acute ST abnormalities -suspect demand ischemia secondary to CHF/Hypertension -will obtain cardiac echo to evaluate LV function and wall motion abnormalities -continue to trend troponins -Nuclear Medicine stress test tomorrow to r/o ischemia Patient indicates that his daughter is his surrogate decision maker. He would like to be a full code and will note this in his record. I have utlized all available resources to review, update, and confirm his current medications. Patient will be admitted under observation as it is expected he will discharge within 48 hours. COVID-19 COVID-19 status: Negative Time Spent With Patient Critical Care time: I spent a total of [] minutes of critical care time on this patient's care today; this time is exclusive of procedural time.
[2021-08-19] MEDS: FUROSEMIDE 20 MG/2 ML VIAL IV (22:23)
[2021-08-19] MEDS: lisinopriL 10 MG TABLET PO (22:23)
--- NOTE | 2021-08-19 23:20 | PC.NURSE ---
Pt was admitted tonight from the ER around 2100 with CHF. pt alert and oriented, on RA sating in the mid 90's. Pt educated on his new BP medication, Lisinopril and his furosemide. Tele placed and orders were explain with patients.
[2021-08-19] MEDS: ACETAMINOPHEN 325 MG TABLET 650 MG PO (23:38)
[2021-08-20] VITALS (20 sets, daily range): BP systolic 104–156; BP diastolic 66–116; PULSE 71–188; RESP 16–21; TEMP 36.2–37.2; O2SAT 92–96
--- NOTE | 2021-08-20 00:46 | PC.NURSE ---
Addendum entered by Dayna Fairchild R.N. 08/20/21 02:31: Approximately 0120 notified by TOOLMAN that patient was in SVT with rate in 170's. Patient awakened and denied any chest pain but did admit to feeling some palpatations. BP 104/66 with HR of [address] per room vitals monitor. Dr Sandoval contacted as patient remaining in SVT. TOOLMAN in to patient room and had him perform valsalva manuever after which BP 155/116 with HR of 90. Dr Sandoval in to see patient. Orders received for stat EKG and IV Metoprolol. BP after 3 doses of Metoprolol was 143/73 and HR 79. Per TOOLMAN patient was in SVT for 8 minutes. Original Note: Patient is alert and oriented. Breath sounds diminished throughout and tight sounding; has expiratory wheeze in IVORY. States he still is SOB after activity but improved. Still unable to lie flat. RA sat 94%. Having 8/10 cramping type pain in LUQ of abdomen exacerbated by deep breathing. States he gets this pain when he is dehydrated. Dr Sandoval informed and stated to give the Tylenol and if that does help to use the Morphine. Medicated with Tylenol and when reassessed he was asleep. HRR with telemetry reading of SR w/BBB. BP had been elevated and now improved at 147/84. Denies nausea. BT present but hypoactive. Having urinary frequency/urgency related to having received IV Lasix earlier but denies dysuria. 1+ edema present in bilateral ankles. Able to get up to bathroom independently but calls for staff to assist with taking off/putting on bilateral calf SCD's. Fall risk score is low.
[2021-08-20] MEDS: METOPROLOL TARTRATE 5 MG/5 ML INJ IV ×3 (01:36→01:52)
[2021-08-20] MEDS: SODIUM CHLORIDE 0.9% FLUSH 10 ML IV ×5 (01:36→20:19)
--- NOTE | 2021-08-20 03:50 | PM.EVENT ---
Event Note Date Patient Seen: 08/20/21 Event Note: Patient was noted to have supraventricular tachycardia. His heart rate was documented to be 180. Patient undewent a vagal maneuver and converted to sinus rhythm with PVC's. EKG confirmed sinus rhythm with PAC's, LAE, RBBB. Patient was hypertensive and given one dose of lopressor for his hypertension and prior tachycardia. Patient was asymptomatic during the episode
[2021-08-20] MEDS: PANTOPRAZOLE DR 20 MG TABLET PO (05:31)
[2021-08-20 05:56] LABS: BUN Creatinine Ratio 20.6 (6-22); Blood Urea Nitrogen 21 mg/dL (9-20); Carbon Dioxide 35 mmol/L (22-32); Chloride 100 mmol/L (98-107); Cholesterol 118 mg/dL (140-199); Estimated Glomerular Filt Rate > 60.0 mL/min (>60); Glucose 101 mg/dL (80-110); HDL Cholesterol 51 mg/dL (40-60); HEMOLYSIS < 15 (0-50); LDL Cholesterol Calculated 56 mg/dL (<100); Potassium 4.5 mmol/L (3.4-5.1); Sodium 139 mmol/L (137-145); Triglycerides 56 mg/dL (35-150); Troponin I 0.065 ng/mL (0.01-0.034)
[2021-08-20] MEDS: lisinopriL 10 MG TABLET PO (09:33)
[2021-08-20] MEDS: METOPROLOL ER 25 MG TABLET PO ×2 (09:33→20:18)
[2021-08-20] MEDS: DOCUSATE 100 MG CAPSULE PO ×2 (09:33→22:58)
[2021-08-20] MEDS: FUROSEMIDE 20 MG/2 ML VIAL IV ×2 (09:34→17:57)
[2021-08-20] MEDS: ASPIRIN EC 81 MG TABLET PO (09:34)
[2021-08-20] MEDS: ENOXAPARIN 40 MG/0.4 ML SYRINGE SUBCUT (09:34)
[2021-08-20] MEDS: ALBUTEROL/IPRATROPIUM 3 ML AMPUL INH (10:18)
--- NOTE | 2021-08-20 13:10 | CM.DANOTE ---
Patient is a 66 yo male who was admitted on 08/19/21 for SOB, high BP. Pt has NO INSURANCE and NO PCP. EMR was reviewed. Per MD, pt who has been fully COVID vaccinated and admitted for SOB and acute CHF and to have stress test and Echo today to determine if he is stable for d/c home. SW met bedside with pt and explained role and pt confirms that he lives at home in [facility] alone and has local supportive Dtr Sabrina who can assist if needed. Pt is active and independent at baseline and still works 6 days a week and states in 20 years he only called in sick once which was this week. Pt confirms that he does not have insurance or PCP as he hasn't been to an MD in about 20 years. Pt confirms he received the Medicare Helpline and [facility] application for admissions counselors at admit. Pt states he does not anticipate any needs and aware that he needs to establish with a primary physician after d/c. Pt is hopeful to d/c home but his stress test was postponed due to eating today. Pt states his Dtr can transport at discharge. Plan: SW to follow closely after Echo and Stress test results to confirm safe plan of home via Dtr POV. MARC Veloz Discharge Planning/Care Management CM Discharge Assessment Start: 08/20/21 13:03 Freq: Status: Active Protocol: Document 08/20/21 13:03 BF (Rec: 08/20/21 13:10 [id number]) Discharge Planning Assessment Assigned [employer]er MARC Jain DPOA/Assigned Designee Name informally Dtr Sabrina Contact Information [phone] Advance Directives? No Advance Directives on File No History Provided By Patient,Medical Record Has Patient been admitted in last 30 No days? Prior Living Arrangements House Household Members none Type of transporation used prior to Drives own vehicle admit Independent with ADL's Yes Is patient alert and oriented? Yes Caregiver for Another No Barriers to Discharge Yes Comment Pt has no insurance Discharge Plan Home Transportation Arrangement Dtr can transport at d/c Referrals Initiated Other Additional Comment Medicare Helpline and PCP clinics provided Whiteboard Updated in Patient Room with Yes name and ext. # of [employer] Review Status In Process Please Provide Date Initial DC 08/20/21 Assessment Was Performed Next Review Type Continued Stay Review
--- NOTE | 2021-08-20 15:28 | PM.PN.1 ---
Subjective Subjective Date Patient Seen: 08/20/21 Time Patient Seen: 08:00 Interval history: Today he feels much improved. He has no chest pain, no shortness of breath. Exam Vital Signs (past 8 hours): - 08/20/21 07:35 08/20/21 09:33 08/20/21 10:20 Temperature 97.1 F L Pulse Rate 71 71 Respiratory Rate 18 Blood Pressure 142/75 H 142/75 H Pulse Oximetry 96 95 08/20/21 10:23 08/20/21 11:15 Temperature 97.9 F Pulse Rate 88 98 H Respiratory Rate 21 16 Blood Pressure 132/70 Pulse Oximetry 95 92 Oxygen Delivery Method Room Air Oxygen Flow Rate 0 Narrative Exam Narrative: GEN: no acute distress CV: regular rate and rhythm, no murmurs PULM: clear bilaterally, no crackles ABD: soft, nontender, nondistended, no organomegaly EXT: warm and well perfused, 1+ pitting edema Objective Labs Result Diagrams: 08/19/21 11:50 08/20/21 05:13 Labs: Laboratory Results - last 24 hr 08/19/21 08/20/21 08/20/21 18:47 05:13 05:13 Sodium 139 Potassium 4.5 Chloride 100 Carbon Dioxide 35 H BUN 21 H Creatinine 1.02 Estimated GFR > 60.0 BUN/Creatinine Ratio 20.6 Glucose 101 Calcium 9.0 Troponin I 0.069 H 0.065 H Triglycerides 56 Cholesterol 118 L LDL Cholesterol, Calc 56 HDL Cholesterol 51 PFSH Medical History (Updated 08/19/21 @ 22:02 by Laura Sandoval MD) Emphysema lung GERD (gastroesophageal reflux disease) Hypertension Family History (Updated 08/19/21 @ 22:03 by Laura Sandoval MD) Father Diabetes mellitus Daughter Diabetes mellitus Social History household members: none Smoking Status: Unknown if ever smoked Assessment & Plan Assessment & Plan narrative: Mr. Jj is a 66M with PMH HTN, GERD who presents with shortness of breath 1. Acute Congestive heart failure -found to have pulmonary edema, lower extremity edema, BNP 4210, orthopnea -CTA negative for PE, shows emphysematous changes -diuresing well with IV lasix -ECHO ordered -stress ordered -both ECHO and stress delayed today due to staffing issues 2. Hypertension -untreated and likely chronic -patient will start lisinopril 10 mg daily -continue diuresis which will improve blood pressure as well -heart healthy diet -needs outpatient PCP 3. SVT -resolved spontaneously -started metoprolol COPD -CT confirms centrilobular emphysema -patient with a history of smoking, quit 20 years ago -possibly contributing to his shortness of breath -will start albuterol -doubt acute exacerbation, suspect CHF playing more of a role at this time GERD -chronic -will start PPI Elevated Troponin -suspect demand ischemia as patient has no chest pain, EKG shows no acute ST abnormalities -troponin peaked at 0.069 and now downtrending to 0.065, no need to trend further Patient indicates that his daughter is his surrogate decision maker. He would like to be a full code and will note this in his record. I have utlized all available resources to review, update, and confirm his current medications. Patient will be admitted under observation as it is expected he will discharge within 48 hours. Time Spent With Patient Critical Care time: I spent a total of [] minutes of critical care time on this patient's care today; this time is exclusive of procedural time.
--- NOTE | 2021-08-20 15:34 | PC.NURSE ---
Notified pt to start using urinal, as he has been urinating directly into toilet on day shift and havent been able to measure output. Pt states that he urinated about 5 times in the toilet. He states he will start urinating in the urinal. Noted pt coughing and he states he brougt up small amount of mucous. Kaushik otoole prn ordered per Dr Du.
--- NOTE | 2021-08-20 15:36 | PC.NURSE ---
Daniel in Diagnostic Imaging asked this RN to request a couple more troponin levels for patient due to previous elevations and states they may need to have generation engineer available when they do the stress test if troponins remain elevated. Informed Dr Du of this request.
[2021-08-20] MEDS: ACETAMINOPHEN 325 MG TABLET 650 MG PO (20:24)
[2021-08-21] VITALS (14 sets, daily range): BP systolic 126–151; BP diastolic 66–93; PULSE 65–90; RESP 16–18; TEMP 36–36.7; O2SAT 94–98
[2021-08-21] MEDS: PANTOPRAZOLE DR 20 MG TABLET PO (05:22)
[2021-08-21 08:11] LABS: Hematocrit 45.1 % (41-53); Hemoglobin 14.6 g/dL (13.5-17.5); Mean Corpuscular HGB Conc 32.4 % (30-36); Mean Corpuscular Volume 89.4 fL (80-100); Platelet Count 181 X10^3/uL (150-400); Red Blood Cell Count 5.04 X10^6/uL (4.5-5.9); Red Cell Distribution Width 14.8 % (11.6-14.8); White Blood Cell Count 6.4 X10^3/uL (4.5-11.0)
[2021-08-21 08:29] LABS: BUN Creatinine Ratio 23.4 (6-22); Blood Urea Nitrogen 22 mg/dL (9-20); Calcium 8.8 mg/dL (8.4-10.2); Carbon Dioxide 34 mmol/L (22-32); Chloride 99 mmol/L (98-107); Estimated Glomerular Filt Rate > 60.0 mL/min (>60); Glucose 99 mg/dL (80-110); HEMOLYSIS < 15 (0-50); Magnesium 2.1 mg/dL (1.6-2.3); Sodium 138 mmol/L (137-145)
[2021-08-21 08:41] LABS: Troponin I 0.045 ng/mL (0.01-0.034)
[2021-08-21] MEDS: ASPIRIN EC 81 MG TABLET PO (10:05)
[2021-08-21] MEDS: lisinopriL 10 MG TABLET PO (10:05)
[2021-08-21] MEDS: DOCUSATE 100 MG CAPSULE PO ×2 (10:05→21:50)
[2021-08-21] MEDS: SODIUM CHLORIDE 0.9% FLUSH 10 ML IV ×2 (10:06→21:50)
[2021-08-21] MEDS: ENOXAPARIN 40 MG/0.4 ML SYRINGE SUBCUT (10:06)
[2021-08-21] MEDS: METOPROLOL ER 25 MG TABLET PO (10:06)
[2021-08-21] MEDS: FUROSEMIDE 20 MG/2 ML VIAL IV ×2 (10:09→17:45)
[2021-08-21] MEDS: ACETAMINOPHEN 325 MG TABLET 650 MG PO (15:52)
--- NOTE | 2021-08-21 16:50 | P.PN_ITS ---
Subjective Subjective Date Patient Seen: 08/21/21 Time Patient Seen: 08:00 Interval history: Today he feels his shortness of breath is much improved. He currently has no chest pain. Exam Vital Signs (past 8 hours): - 08/21/21 09:39 08/21/21 10:05 08/21/21 10:06 Temperature Pulse Rate Respiratory Rate Blood Pressure 147/93 H 147/93 H Pulse Oximetry 96 08/21/21 12:00 08/21/21 13:00 08/21/21 15:35 Temperature 98.1 F 98.0 F Pulse Rate 76 88 Respiratory Rate 16 16 Blood Pressure 142/76 H 142/84 H Pulse Oximetry 94 98 94 Oxygen Delivery Method Room Air Oxygen Flow Rate 0 Narrative Exam Narrative: GEN: no acute distress CV: regular rate and rhythm, no murmurs PULM: clear bilaterally, no crackles ABD: soft, nontender, nondistended, no organomegaly EXT: warm and well perfused, 1+ pitting edema Objective Labs Result Diagrams: 08/21/21 08:03 08/21/21 08:03 Labs: Laboratory Results - last 24 hr 08/21/21 08/21/21 08:03 08:03 WBC 6.4 RBC 5.04 Hgb 14.6 Hct 45.1 MCV 89.4 MCH 29.0 MCHC 32.4 RDW 14.8 Plt Count 181 Sodium 138 Potassium 4.0 Chloride 99 Carbon Dioxide 34 H BUN 22 H Creatinine 0.94 Estimated GFR > 60.0 BUN/Creatinine Ratio 23.4 H Glucose 99 Calcium 8.8 Magnesium 2.1 Troponin I 0.045 H [facility] Medical History (Updated 08/19/21 @ 22:02 by Laura Sandoval MD) Emphysema lung GERD (gastroesophageal reflux disease) Hypertension Family History (Updated 08/19/21 @ 22:03 by Laura Sandoval MD) Father Diabetes mellitus Daughter Diabetes mellitus Social History household members: none Smoking Status: Unknown if ever smoked Assessment & Plan Assessment & Plan narrative: Mr. Jj is a 66M with PMH HTN, GERD who presents with shortness of breath found to have acute systolic CHF exacerbation 1. Acute Congestive heart failure with EF 30-35% -found to have pulmonary edema, lower extremity edema, BNP 4210, orthopnea -CTA negative for PE, shows emphysematous changes -diuresing well with IV lasix -ECHO ordered showing depressed EF and wall motion abnormalities -stress ordered and stress portion not normal, will need resting portion tomorrow 2. Hypertension -untreated and likely chronic -patient will start lisinopril 10 mg daily -continue diuresis which will improve blood pressure as well -heart healthy diet -needs outpatient PCP 3. SVT -resolved spontaneously -started metoprolol BID and increased to 50m BID 4. COPD -CT confirms centrilobular emphysema -patient with a history of smoking, quit 20 years ago -possibly contributing to his shortness of breath -will start albuterol -doubt acute exacerbation, suspect CHF playing more of a role at this time 5. GERD -chronic -will start PPI 6. Elevated Troponin -suspect demand ischemia as patient has no chest pain, EKG shows no acute ST abnormalities -troponin peaked at 0.069 and now downtrending to 0.065, no need to trend further Patient indicates that his daughter is his surrogate decision maker. He would like to be a full code and will note this in his record. I have utlized all available resources to review, update, and confirm his current medications. Time Spent With Patient Critical Care time: I spent a total of [] minutes of critical care time on this patient's care today; this time is exclusive of procedural time.
[2021-08-21] MEDS: METOPROLOL ER 25 MG TABLET 50 MG PO (21:50)
[2021-08-21] MEDS: diphenhydrAMINE 25 MG TABLET PO (21:50)
[2021-08-21] MEDS: CALCIUM CARBONATE 500 MG TAB PO (21:50)
[2021-08-22] VITALS (9 sets, daily range): BP systolic 137–149; BP diastolic 77–86; PULSE 74–79; RESP 18; TEMP 36.1–36.4; O2SAT 93–98
[2021-08-22] MEDS: PANTOPRAZOLE DR 20 MG TABLET PO (06:13)
[2021-08-22 06:16] LABS: Hematocrit 46.4 % (41-53); Hemoglobin 14.7 g/dL (13.5-17.5); Mean Corpuscular HGB Conc 31.7 % (30-36); Mean Corpuscular Hemoglobin 28.7 PG (26-34); Mean Corpuscular Volume 90.5 fL (80-100); Platelet Count 175 X10^3/uL (150-400); Red Blood Cell Count 5.13 X10^6/uL (4.5-5.9); Red Cell Distribution Width 14.5 % (11.6-14.8); White Blood Cell Count 6.4 X10^3/uL (4.5-11.0)
[2021-08-22 06:17] LABS: BUN Creatinine Ratio 20.7 (6-22); Blood Urea Nitrogen 25 mg/dL (9-20); Carbon Dioxide 38 mmol/L (22-32); Chloride 97 mmol/L (98-107); Estimated Glomerular Filt Rate 59.6 mL/min (>60); Glucose 99 mg/dL (80-110); HEMOLYSIS < 15 (0-50); Potassium 4.8 mmol/L (3.4-5.1); Sodium 140 mmol/L (137-145)
[2021-08-22] MEDS: METOPROLOL ER 25 MG TABLET 50 MG PO (08:45)
[2021-08-22] MEDS: lisinopriL 10 MG TABLET PO ×2 (08:47→11:54)
[2021-08-22] MEDS: ASPIRIN EC 81 MG TABLET PO (08:47)
[2021-08-22] MEDS: ENOXAPARIN 40 MG/0.4 ML SYRINGE SUBCUT (08:47)
[2021-08-22] MEDS: DOCUSATE 100 MG CAPSULE PO (08:47)
[2021-08-22] MEDS: SODIUM CHLORIDE 0.9% FLUSH 10 ML IV (08:48)
--- NOTE | 2021-08-22 13:37 | PC.NURSE ---
Pt A&OX3. VSS, afebrile on RA. Pt NPO since prior to midnight for stress test in nuclear med this a.m. He returned shortly after 0830 a.m and was able to eat breakfast. Ambulating in room independently. MD at bedside clearing patient for discharge with new medications and follow up recommendations. He verbalizes understanding of all medications and follow up. PRIVATE DUTY RN escorted patient with daughter via wheelchair to private vehicle with all of his belongings at approximately noon.
--- NOTE | 2021-08-22 16:05 | P.DS_ITS ---
History of Present Illness History of Present Illness Chief complaint: Trouble breathing, high BP Narrative: Per Dr. Sandoval: The patient is a 66 y/o male with a history of hypertension, GERD, COPD who has not seen a doctor in over 20 years. He reports that he has had gradual onset of shortness of breath for over one year. He has albuterol which has been provided to him and uses it several times daily for his shortness of breath. Over the last five days his shortness of breath has gotten worse. He describes orthopnea, PND, anxiety secondary to inability to sleep or lie flat. He has noticed increased lower extremity edema. He denies chest pain, chest pressure, or palpitations. He has had no fever, chills, cough, loss of taste or smell. He was vaccinated against Covid-19 with Moderna and received both doses. He has had no prior hospitalizations. The patient was evaluated in the Emergency Department. He was found to have a Chest Xray which revealed cardiomegaly with pulmonary vascular congestion. D-dimer was elevated at [address] angio was negative for PE. CT Angio did show Mild to Moderate centrilobular emphysema. 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 His proBNP was elevated at 4210, and troponin's elevated at .064, and .069 subsequently. EKG reveals: Sinus tachycardia with occasional premature ventricular complexes Right bundle branch block , plus right ventricular hypertrophy Patient is admitted to the hospital for Shortness of breath. Discharge Providers Provider Date of admission: 08/19/21 18:44 Discharge Date: 08/22/21 Discharge provider: Keny Du MD Summary Hospital Course Discharge Diagnosis: 1. Acute systolic CHF exacerbation 2. Hypertension 3. SVT 4. COPD 5. GERD 6. Cardiac demand ischemia Hospital Course: Mr. Jj was admitted with shortness of breath, this had been occurring chronically, but acutely worsened. He was diagnosed with an acute CHF exacerbation. He was diuresed with IV lasix and his respiratory status improved after he diuresed well. He was noted to be brief SVT on tele and on ECHO taht resolved without intervention. These did not occur with increasing metoprolol. His ECHO should an EF of 30-35%, a new finding. CTA showed emphysematous changes. He was started on aspirin, statin, lasix, lisinopril, and metoprolol. He felt well with these changes. He had a stress test done that was low risk. He was discharged home. He is referred to cardiology for these new findings. Exam Vital Signs (past 8 hours): Oxygen Delivery Method Room Air Oxygen Flow Rate 0 Objective Labs Result Diagrams: 08/22/21 05:55 08/22/21 05:55 [facility] Medical History (Updated 08/19/21 @ 22:02 by Laura Sandoval MD) Emphysema lung GERD (gastroesophageal reflux disease) Hypertension Family History (Updated 08/19/21 @ 22:03 by Laura Sandoval MD) Father Diabetes mellitus Daughter Diabetes mellitus Social History household members: none Smoking Status: Unknown if ever smoked Discharge Plan Discharge Plan Patient Disposition: Home Provider Discharge Comment: Mr. Jj came in to the hospital with shortness of breath. He was found to have a weak heart with congestive heart failure at 30%. This is possibly caused by a heart attack or alcohol. He should stop alcohol. He did not have a heart attack here. His stress test showed he did not need an angiogram now. He has possibly had a heart attack in the past. He is prescribed multiple medications aspirin (to help prevent heart attack), atorvastatin (help prevent heart attack), furosemide (to help reduce fluid build up), lisinopril (lower blood pressure to help reduce stress on the heart), metoprolol (to help try to restrengthen the heart). He should have a sleep study as an outpatient, because his heart looks under strain and he may have sleep apnea which would c ause more strain on his heart. Discharge orders & Medications Prescriptions: New aspirin 81 mg Tablet,Delayed Release (Dr/Ec) 81 mg PO DAILY Qty: 30 RF: 0 lisinopril 10 mg Tablet 20 mg PO DAILY Qty: 30 RF: 0 furosemide 20 mg Tablet 10 mg PO DAILY Qty: 30 RF: 0 metoprolol succinate 25 mg Tablet Extended Release 24 Hr 50 mg PO BID 60 Days Qty: 240 RF: 0 atorvastatin 40 mg tablet 40 mg PO BEDTIME Qty: 30 RF: 0 Continued diphenhydramine HCl 50 mg Capsule 50 mg PO BEDTIME RF: 0 Medication counseling provided by Pharmacist: Yes Follow up/Referrals: Miscellaneous,Doctor, [Non-Staff] - Diet/Activity/Treatments Diet: Low-fat, Low-sodium and Low-cholesterol Visit Report/Discharge Packet Instructions: Statin Drugs, Furosemide, Metoprolol, Lisinopril Discharge Data Attending Provider: Keny Du MIPS - DC The patient has current or prior documentation of left ventricular ejection fraction (LVEF) less than 40%, or moderate or severely depressed left ventricular systolic function.: Yes A. The patient was prescribed or already taking an Angiotensin-Converting Enzyme (AUGUSTO) Inhibitor, or Angiotensin Receptor Amarilis (ARB).: Yes B. The patient was prescribed or already taking a beta-amarilis. [If Yes to Both A & B, STOP here]: Yes
--- NOTE | 2021-08-22 19:56 | DI.NM.S_ITS ---
DATE OF SERVICE: 08/21/2021 PROCEDURE PERFORMED: Pharmacologic stress and rest myocardial perfusion imaging with gating to assess ejection fraction and regional wall motion. ORDERING PROVIDER: Dr. Keny Du. INDICATIONS: The patient is a 66-year-old male admitted with dyspnea and severe hypertension with mildly elevated troponin. CARDIAC STRESS: Per protocol, 0.4 mg of regadenoson was infused with a normal hemodynamic response. He had no chest discomfort. Oxygen saturation remained <93%. His resting ECG shows LVH with a strain pattern and an incomplete RBBB and left posterior fascicular block and probable right ventricular hypertrophy, and nonspecific ST-segment abnormalities that remain unchanged with stress. He had occasional isolated PVCs at rest and with stress, but no complex ventricular ectopy. Per protocol, he was injected with 25.9 millicuries of technetium-99m Myoview and was imaged 10 minutes later using a gated SPECT acquisition protocol. He returned the following day and was injected with an additional 25.7 millicuries of technetium-99m Myoview at rest and was imaged 25 minutes later, again using a gated SPECT acquisition protocol. FINDINGS: 1. Raw data: There is fair myocardial tracer uptake although with fairly prominent right ventricular uptake, which can be a sign of a right ventricular overload condition. There is evidence for diaphragmatic attenuation. The lung/heart ratio is mildly elevated at 0.43, which can be a sign of pulmonary congestion. TID ratio is normal at 0.97. 2. Quantitated gated SPECT: Post-stress ejection fraction is estimated at 47% with mild global hypokinesis that is worse in the inferior wall. The resting ejection fraction is 45% with fairly marked left ventricular enlargement with a resting end-diastolic volume of 318 mL. 3. Myocardial perfusion imaging: Post-stress supine images show a fairly normal myocardial perfusion with the exception of a mild defect in the inferior wall that becomes more prominent in the distal inferior wall near the apex in a pattern that could be reflective of diaphragmatic attenuation. Unfortunately, prone imaging was not available to assess for this. The resting images show a similar perfusion pattern with minimal, if any, improvement in the defect. IMPRESSION: 1. Abnormal myocardial perfusion study but low risk for myocardial ischemia. 2. Predominantly fixed, minimally reversible inferior defect. This could reflect diaphragmatic attenuation, but given the wall motion abnormality in the inferior wall, more likely represents a previous nontransmural infarction. 3. Moderately reduced left ventricular systolic function with significantly increased left ventricular volumes abd fairly prominent tracer uptake in the right ventricle free wall, which can be a sign of a right ventricular overload condition. 4. No angina or ST-segment shifts to suggest ischemia. He does have right axis deviation and ECG evidence of right ventricular hypertrophy. He had occasional PVCs, but no complex ventricular ectopy. Toni Jj - NICO/j carlos/kelvin doc#: [id number]/job#: [id number] dd: 08/22/2021 10:51:00 dt: 08/22/2021 19:22:00 DICTATING MD/COPIES TO: Lalo Hernandez MD; Keny Du M.D. COPIES MNE: JESSENIA;
== END 2021-08-22 12:00 | disposition home or self-care (01) ==
LOC: ED 18:43 → AC 08-20 08:20
PROVIDERS: Emergency Medicine; Internal Medicine; Admitting Provider Internal Medicine; Emergency Provider Student in an Organized Health Care Education/Training Program; Referring Provider Student in an Organized Health Care Education/Training Program; Visit Provider Internal Medicine
DX: I11.0 Hypertensive heart disease with heart failure (principal); I50.21 Acute systolic (congestive) heart failure; R06.02 Shortness of breath; I47.1 Supraventricular tachycardia; I25.89 Other forms of chronic ischemic heart disease; J44.9 Chronic obstructive pulmonary disease, unspecified; Z87.891 Personal history of nicotine dependence; K21.9 Gastro-esophageal reflux disease without esophagitis; Z20.822 Contact with and (suspected) exposure to COVID-19
CPT/HCPCS: 36415; 71046; 71275; 78452; 80048; 80053; 80061; 83605; 83735; 83880; 84484; 85025; 85027; 85379; 87635; 93005; 93010; 93017; 93306; 93970; 94640; 94760; 96374; 99284; 99285; C9803; G0378; A9502; J1650; J1940; J2785; Q9967

== ENCOUNTER → 2022-07-20 06:53 | Outpatient (CLI) | payer OTHER, MEDICARE, SELFPAY ==
[2021-08-19 21:14] VITALS: BMI 30.2
[2022-07-20 07:32] LABS: Add Manual Diff / Slide Review NO; Basophils Absolute Auto 0 /uL (0-100); Basophils Percent Auto 0.5 % (0-2); Eosinophils Absolute Auto 400 /uL (0-450); Eosinophils Percent Auto 5.5 % (2-4); Hematocrit 40.9 % (41-53); Hemoglobin 13.5 g/dL (13.5-17.5); Lymphocytes Absolute Auto 1800 /uL (1100-4500); Lymphocytes Percent Auto 26.5 % (25-40); Mean Corpuscular HGB Conc 32.9 % (30-36); Mean Corpuscular Hemoglobin 28.6 PG (26-34); Mean Corpuscular Volume 86.9 fL (80-100); Monocytes Absolute Auto 800 /uL (0-900); Monocytes Percent Auto 12.2 % (3-14); Neutrophils Absolute Auto 3800 /uL (1500-7000); Neutrophils Percent Auto 55.3 % (50-75); Platelet Count 186 X10^3/uL (150-400); Red Blood Cell Count 4.71 X10^6/uL (4.5-5.9); Red Cell Distribution Width 14.7 % (11.6-14.8); White Blood Cell Count 6.8 X10^3/uL (4.5-11.0)
[2022-07-20 07:54] LABS: Alanine Aminotransferase 56 IU/L (<50); Albumin 4.1 g/dL (3.5-5.0); Albumin Globulin Ratio 1.1 (1.0-2.8); Alkaline Phosphatase 88 U/L (38-126); Aspartate Aminotransferase 55 IU/L (17-59); BUN Creatinine Ratio 17.6 (6-22); Bilirubin Total 0.7 mg/dL (0.2-1.3); Blood Urea Nitrogen 16 mg/dL (9-20); Calcium 8.9 mg/dL (8.4-10.2); Carbon Dioxide 35 mmol/L (22-32); Chloride 100 mmol/L (98-107); Cholesterol 92 mg/dL (140-199); Estimated Glomerular Filt Rate > 60 mL/min (>60); Globulin 3.6 g/dL (1.7-4.1); Glucose 99 mg/dL (80-110); HDL Cholesterol 44 mg/dL (40-60); HEMOLYSIS < 15 (0-50); LDL Cholesterol Calculated 31 mg/dL (<100); Potassium 4.2 mmol/L (3.4-5.1); Sodium 141 mmol/L (137-145); Total Protein 7.7 g/dL (6.3-8.2); Triglycerides 87 mg/dL (35-150)
[2022-07-20 08:02] LABS: NT-proBNP (BNP-Adult 18+) 752 pg/mL (<125)
[2022-07-20 08:24] LABS: Prostate Specific Antigen Scrn 1.34 ng/mL (0.1-4.0)
[2022-07-20 08:48] LABS: TSH w/ Reflex to FT4 1.98 uIU/mL (0.47-4.68)
[2022-07-20 15:44] LABS: Hep C Virus Ab w/Reflex Quant REACTIVE s/c (NEGATIVE)
[2022-07-24 19:06] LABS: HCV Genotype 1a (.); HCV LOG 10 5.449 (.)
== END ==
PROVIDERS: PCP Family Medicine; Referring Provider Family Medicine; Visit Provider Family Medicine
DX: I50.9 Heart failure, unspecified (principal); E78.5 Hyperlipidemia, unspecified; I10 Essential (primary) hypertension; J43.9 Emphysema, unspecified; Z86.19 Personal history of other infectious and parasitic diseases; Z12.5 Encounter for screening for malignant neoplasm of prostate
CPT/HCPCS: 36415; 80053; 80061; 83880; 84443; 85025; 86803; 87522; G0103

== ENCOUNTER → 2022-07-23 09:01 | Outpatient (CLI) | payer OTHER, MEDICARE, SELFPAY ==
[2021-08-19 21:14] VITALS: BMI 30.2
--- NOTE | 2022-07-23 09:03 | DI.RAD.S_ITS ---
PROCEDURE: XR HIP W PEL IF DONE LT 2V INDICATIONS: left hip pain and right shoulder pain TECHNIQUE: 2 views of the hip were acquired. COMPARISON: None. FINDINGS: Bones: No fractures or dislocations. No suspicious bony lesions. The visualized pelvic ring appears intact. Soft tissues: Atherosclerotic vascular calcification noted in the pelvis. IMPRESSION: Unremarkable pelvis left hip radiographs Approved by: Jem Singh M.D. on 07/23/2022 at 12:35
--- NOTE | 2022-07-23 09:03 | DI.RAD.S_ITS ---
PROCEDURE: XR SHOULDER RT MIN 2V INDICATIONS: left hip pain and right shoulder pain TECHNIQUE: Three views of the shoulder were acquired. COMPARISON: None. FINDINGS: Bones: No fractures or dislocations. No suspicious bony lesions. Visualized ribs appear intact. Soft tissues: No suspicious soft tissue calcifications. IMPRESSION: Intact right shoulder. Dictated by: Ngoc Campbell M.D. on 07/23/2022 at 12:27 Approved by: Ngoc Campbell M.D. on 07/23/2022 at 12:28
== END ==
PROVIDERS: PCP Family Medicine; Referring Provider Family Medicine; Visit Provider Family Medicine
DX: M25.511 Pain in right shoulder (principal); M25.552 Pain in left hip
CPT/HCPCS: 73030; 73502

== ENCOUNTER → 2022-07-31 08:02 | Outpatient (CLI) | payer OTHER, MEDICARE, SELFPAY ==
[2021-08-19 21:14] VITALS: BMI 30.2
--- NOTE | 2022-07-31 08:05 | DI.ECHO.S_ITS ---
[facility]---------[facility] +---------+ : : [address] [place] : : : : [id number] : : : : Phone: [phone]+ Echocardiogram Report + + :Name: PITER HOYOS Study Date: 07/31/2022 Height: 70 in : :[facility] ReadingLocation: Weight: 190 lb : : Gender: Male BSA: 2.0 m2 : :: 1955 Age: 66 yrs BP: 176/106 mmHg: :Reason For Study: Congestive Heart Failure : :Ordering Physician: SU, : :RAHUL Performed By: Dax Dinh : :Referring: RAHUL BLUE : + + Interpretation Summary The left ventricle is moderate-severely dilated. Left ventricular systolic function is mildly reduced. The ejection fraction is estimated to be 40-45%. Left ventricular systolic function has moderately improved compared to the previous exam. There are multiple LV wall motion abnormalities. There is preserved septal and part of anterior and apical wall motion. The rest of LV segments are moderate to severely hypokinetic. Diastolic parameters suggest a restrictive filling pattern consistent with probable significantly elevated filling pressures. The right ventricle is mildly dilated. The right ventricular systolic function is normal. The right ventricular systolic pressure is estimated to be at least 62 mmHg based on an estimated right atrial pressure of 3 mm Hg. The left atrium is severely dilated. The right atrium is mildly dilated. There is moderate mitral regurgitation. Compared to the prior echo study, there has been no change in the severity of mitral regurgitation. There is moderate aortic regurgitation. Compared to the prior echo study, there has been an increase in the severity of aortic regurgitation. There is an eccentric jet of aortic insufficiency directed against the septum. There is no other significant valvular heart disease. The aortic root is borderline dilated. Procedure: A two-dimensional transthoracic echocardiogram with color flow and Doppler was performed. The study quality was technically adequate. Comparison is made with the echocardiogram of 08/21/2021. The patient was in sinus bradycardia with heart rates between 46 bpm during the exam. Left Ventricle: The left ventricle is moderate-severely dilated. There is mild concentric left ventricular hypertrophy. Left ventricular systolic function is mildly reduced. The ejection fraction is estimated to be 40-45%. Left ventricular systolic function has moderately improved compared to the previous exam. There are multiple LV wall motion abnormalities. There is preserved septal and part of anterior and apical wall motion. The rest of LV segments are moderate to severely hypokinetic. Diastolic parameters suggest a restrictive filling pattern consistent with probable significantly elevated filling pressures. Right Ventricle: The right ventricle is mildly dilated. The right ventricular systolic function is normal. Atria: The left atrium is severely dilated. The right atrium is mildly dilated. The interatrial septum grossly appears intact with no obvious evidence for an atrial septal defect. Mitral Valve: The mitral valve leaflets appear mildly thickened, but open well. There is moderate mitral regurgitation. Compared to the prior echo study, there has been no change in the severity of mitral regurgitation. Aortic Valve: The aortic valve is normal in structure and function. There is moderate aortic regurgitation. Compared to the prior echo study, there has been an increase in the severity of aortic regurgitation. There is an eccentric jet of aortic insufficiency directed against the septum. Tricuspid Valve: The tricuspid valve leaflets are thickened and/or calcified, but open well. There is mild tricuspid regurgitation. The right ventricular systolic pressure is estimated to be at least 62 mmHg based on an estimated right atrial pressure of 3 mm Hg. Pulmonic Valve: The pulmonic valve is not well seen, but is grossly normal. There is mild pulmonic regurgitation. There is no other significant valvular heart disease. Great Vessels: The aortic root is borderline dilated. The ascending aorta could not be visualized. The IVC is of normal diameter and collapses greater than 50% with a sniff. This suggests a low right atrial pressure of 3 mm Hg. Pericardium/ Pleura There is no pericardial effusion. There is no pleural effusion. MMode/2D Measurements & Calculations LVIDd: 6.7 cm LVOT diam: 2.5 cm LVIDs: 5.2 cm Ao root diam: 4.0 cm FS: 22.4 % IVSd: 1.4 cm LVPWd: 1.2 cm LV duval. diameter/BSA (cm/m^2): 3.3 LV sys. diameter/BSA (cm/m^2): 2.5 LA A2 area: 38.6 cm2 RA long axis: 5.2 cm LA A4 area: 40.1 cm2 RA area: 21.7 cm2 LA length (vol): 7.6 cm RA vol: 77.1 ml LA vol: 174.2 ml RA : 37.7 ml/m2 LA vol index: 85.3 ml/m2 TAPSE: 2.2 cm Doppler Measurements & Calculations Ao V2 max: 166.2 cm/sec LVOT Max Lg: 108.3 cm/sec Ao V2 mean: 104.2 cm/sec LV V1 max P.7 mmHg Ao max P.1 mmHg LV V1 VTI: 22.9 cm Ao mean P.0 mmHg MARI(I,D): 3.2 cm2 Ao V2 VTI: 34.8 cm MARI(V,D): 3.2 cm2 sev ratio: 0.66 MARI indexed to BSA (cm^2/m^2): 1.6 AI P1/2t: 420.2 msec AI dec slope: 381.5 cm/sec2 MV E max lg: 88.7 cm/sec TR max lg: 382.5 cm/sec MV A max lg: 30.0 cm/sec TR max P.5 mmHg MV E/A: 3.0 Med Peak E' Lg: 5.3 cm/sec E/E' med: 16.6 Lat Peak E' Lg: 10.9 cm/sec E/E' lat: 8.1 E/e' average: 12.4 MV dec time: 0.27 sec MR VTI: 222.0 cm SV(LVOT): 112.1 ml Reading Physician:02:24 PM
== END ==
PROVIDERS: PCP Family Medicine; Referring Provider Family Medicine; Visit Provider Family Medicine
DX: I77.810 Thoracic aortic ectasia (principal); I50.9 Heart failure, unspecified; I08.3 Combined rheumatic disorders of mitral, aortic and tricuspid valves
CPT/HCPCS: 93306

== ENCOUNTER → 2022-10-08 08:08 | Outpatient (CLI) | payer OTHER, MEDICARE, SELFPAY ==
[2021-08-19 21:14] VITALS: BMI 30.2
[2022-10-08 09:21] LABS: BUN Creatinine Ratio 22.2 (6-22); Blood Urea Nitrogen 18 mg/dL (9-20); Calcium 9.2 mg/dL (8.4-10.2); Carbon Dioxide 35 mmol/L (22-32); Chloride 97 mmol/L (98-107); Estimated Glomerular Filt Rate > 60 mL/min (>60); Glucose 109 mg/dL (80-110); HEMOLYSIS < 15 (0-50); Potassium 4.3 mmol/L (3.4-5.1); Sodium 140 mmol/L (137-145)
== END ==
PROVIDERS: PCP Family Medicine; Referring Provider Family Medicine; Visit Provider Family Medicine
DX: I10 Essential (primary) hypertension (principal); I50.9 Heart failure, unspecified; J43.9 Emphysema, unspecified; T78.40XA Allergy, unspecified, initial encounter
CPT/HCPCS: 36415; 80048

== ENCOUNTER → 2022-12-23 13:04 | Outpatient (CLI) | payer OTHER, MEDICARE, SELFPAY ==
[2021-08-19 21:14] VITALS: BMI 30.2
[2022-12-23 13:54] LABS: Add Manual Diff / Slide Review NO; Basophils Absolute Auto 100 /uL (0-100); Basophils Percent Auto 0.6 % (0-2); Eosinophils Absolute Auto 100 /uL (0-450); Eosinophils Percent Auto 1.5 % (2-4); Hematocrit 39.1 % (41-53); Hemoglobin 12.5 g/dL (13.5-17.5); Lymphocytes Absolute Auto 1700 /uL (1100-4500); Lymphocytes Percent Auto 18.9 % (25-40); Mean Corpuscular Volume 87.3 fL (80-100); Monocytes Absolute Auto 1000 /uL (0-900); Monocytes Percent Auto 11.4 % (3-14); Neutrophils Absolute Auto 6000 /uL (1500-7000); Neutrophils Percent Auto 67.6 % (50-75); Platelet Count 285 X10^3/uL (150-400); Red Blood Cell Count 4.48 X10^6/uL (4.5-5.9); Red Cell Distribution Width 14.8 % (11.6-14.8); White Blood Cell Count 8.9 X10^3/uL (4.5-11.0)
[2022-12-23 14:08] LABS: INR 1.1 (0.9-1.3); Prothrombin Time 13.1 SECONDS (10.1-12.7)
[2022-12-23 14:12] LABS: Alanine Aminotransferase 104 IU/L (<50); Albumin 4.3 g/dL (3.5-5.0); Albumin Globulin Ratio 1.2 (1.0-2.8); Alkaline Phosphatase 109 U/L (38-126); Aspartate Aminotransferase 73 IU/L (17-59); Bilirubin Total 0.5 mg/dL (0.2-1.3); Blood Urea Nitrogen 20 mg/dL (9-20); Calcium 9.1 mg/dL (8.4-10.2); Carbon Dioxide 30 mmol/L (22-32); Chloride 97 mmol/L (98-107); Estimated Glomerular Filt Rate > 60 mL/min (>60); Globulin 3.7 g/dL (1.7-4.1); Glucose 99 mg/dL (80-110); HEMOLYSIS < 15 (0-50); Potassium 4.8 mmol/L (3.4-5.1); Sodium 137 mmol/L (137-145)
[2022-12-24 04:44] LABS: HBsAg Screen Negative (Negative); Hep A AB IgM Negative (Negative); Hepatitis A Ab, Total Negative (Negative); Hepatitis B Core Antibody IgM Negative (Negative); Hepatitis B Core Total Negative (Negative); Hepatitis B Surface AB, Qual Non Reactive (.); Hepatitis C Virus Ab Reactive (Non Reactive)
[2022-12-27 13:13] LABS: HCV log 10 5.897 (.)
== END ==
PROVIDERS: PCP Family Medicine; Referring Provider Physician Assistant; Visit Provider Physician Assistant
DX: B18.2 Chronic viral hepatitis C (principal)
CPT/HCPCS: 36415; 80053; 80074; 85025; 85610; 86704; 86706; 86708; 86803; 87522

== ENCOUNTER → 2023-01-01 14:01 | Outpatient (ROUT) | payer OTHER, MEDICARE, SELFPAY ==
[2021-08-19 21:14] VITALS: BMI 30.2
[2023-01-04 21:35] LABS: ALT (SGPT) 76 IU/L (0-55); Alpha 2-Macroglobulins, QN 351 mg/dL (110-276); Apolipoprotein A-1 123 mg/dL (101-178); Bilirubin,Total 0.3 mg/dL (0.0-1.2); Fibrosis Score 0.61 (0.00-0.21); GGT 83 IU/L (0-65); Haptoglobin 211 mg/dL (32-363); Necroinflammat Act Grade A2-Moderate activity (.); Necroinflammat Act Score 0.57 (0.00-0.17)
== END ==
PROVIDERS: PCP Family Medicine; Visit Provider Physician Assistant
DX: B18.2 Chronic viral hepatitis C (principal)
CPT/HCPCS: 81596

== ENCOUNTER → 2023-06-29 15:46 | Outpatient (CLI) | payer MEDICARE, SELFPAY ==
[2021-08-19 21:14] VITALS: BMI 30.2
[2023-06-29 17:18] LABS: Add Manual Diff / Slide Review NO; Basophils Absolute Auto 0 /uL (0-100); Basophils Percent Auto 0.5 % (0-2); Eosinophils Absolute Auto 200 /uL (0-450); Eosinophils Percent Auto 3.2 % (2-4); Hematocrit 33.5 % (41-53); Hemoglobin 10.9 g/dL (13.5-17.5); Lymphocytes Absolute Auto 1500 /uL (1100-4500); Lymphocytes Percent Auto 19.9 % (25-40); Mean Corpuscular HGB Conc 32.6 % (30-36); Mean Corpuscular Hemoglobin 25.9 PG (26-34); Mean Corpuscular Volume 79.4 fL (80-100); Monocytes Absolute Auto 900 /uL (0-900); Monocytes Percent Auto 12.5 % (3-14); Neutrophils Absolute Auto 4800 /uL (1500-7000); Neutrophils Percent Auto 63.9 % (50-75); Platelet Count 264 X10^3/uL (150-400); Red Blood Cell Count 4.22 X10^6/uL (4.5-5.9); Red Cell Distribution Width 15.8 % (11.6-14.8); White Blood Cell Count 7.5 X10^3/uL (4.5-11.0)
[2023-06-29 17:53] LABS: Alanine Aminotransferase 54 IU/L (<50); Albumin Globulin Ratio 1.2 (1.0-2.8); Alkaline Phosphatase 86 U/L (38-126); Aspartate Aminotransferase 50 IU/L (17-59); BUN Creatinine Ratio 17.4 (6-22); Bilirubin Total 0.4 mg/dL (0.2-1.3); Blood Urea Nitrogen 19 mg/dL (9-20); Calcium 9.4 mg/dL (8.4-10.2); Carbon Dioxide 31 mmol/L (22-32); Chloride 98 mmol/L (98-107); Cholesterol 126 mg/dL (140-199); Estimated Glomerular Filt Rate > 60 mL/min (>60); Globulin 3.3 g/dL (1.7-4.1); Glucose 91 mg/dL (80-110); HDL Cholesterol 32 mg/dL (40-60); HEMOLYSIS < 15 (0-50); LDL Cholesterol Calculated 72 mg/dL (<100); Potassium 4.8 mmol/L (3.4-5.1); Sodium 136 mmol/L (137-145); Total Protein 7.3 g/dL (6.3-8.2); Triglycerides 108 mg/dL (35-150)
[2023-06-29 17:56] LABS: BUN Creatinine Ratio 17.9 (6-22); Blood Urea Nitrogen 20 mg/dL (9-20); Calcium 9.3 mg/dL (8.4-10.2); Carbon Dioxide 31 mmol/L (22-32); Chloride 98 mmol/L (98-107); Estimated Glomerular Filt Rate > 60 mL/min (>60); Glucose 90 mg/dL (80-110); HEMOLYSIS < 15 (0-50); Potassium 4.9 mmol/L (3.4-5.1); Sodium 136 mmol/L (137-145)
[2023-06-29 18:25] LABS: Prostate Specific Antigen Scrn 1.08 ng/mL (0.1-4.0)
== END ==
PROVIDERS: PCP Family Medicine; Referring Provider Nurse Practitioner; Visit Provider Nurse Practitioner
DX: Q25.40 Congenital malformation of aorta unspecified (principal); E78.5 Hyperlipidemia, unspecified; Z12.5 Encounter for screening for malignant neoplasm of prostate; B19.20 Unspecified viral hepatitis C without hepatic coma; I50.9 Heart failure, unspecified; M19.011 Primary osteoarthritis, right shoulder; I10 Essential (primary) hypertension
CPT/HCPCS: 36415; 80048; 80053; 80061; 84443; 85025; G0103

== ENCOUNTER → 2023-07-01 09:07 | Outpatient (CLI) | payer MEDICARE, SELFPAY ==
[2021-08-19 21:14] VITALS: BMI 30.2
--- NOTE | 2023-07-01 | DI.CT.S_ITS ---
PROCEDURE: CT ANGIO CHEST ABDOMEN PELVIS INDICATIONS: ABNORMAL ASCENDING AORTA/AORTIC VALVE INSUFFICIENCY TECHNIQUE: Precontrast 5 mm thick sections acquired from the lung apices to the iliac crests. After the administration of intravenous contrast, 2.5 mm thick sections again acquired from the lung apices to the iliac crests. Maximum intensity projection (MIP) oblique sagittal and coronal reformats were then acquired. For radiation dose reduction, the following was used: automated exposure control. COMPARISON: [facility], CT, CT ANGIO CHEST PE PROTOCOL, 08/19/2021, 13:48. FINDINGS: Image quality: Excellent. AORTA and its attachments: Unchanged aneurysmal dilatation of the ascending aorta, measuring 4.6 cm in diameter. Classic three-vessel arch anatomy. Great vessel origins are widely patent. Transverse aorta and descending thoracic aorta are normal in caliber with mild plaque. No abdominal aortic aneurysm. Mild diffuse abdominal aortic plaque. Celiac, SMA, bilateral renal arteries, and THEO are patent. Mild diffuse plaque involving the common iliacs and external iliacs and common femorals without aneurysm. CHEST: Lungs and pleura: No acute airspace opacities. No pleural effusions or pneumothorax. Central and peripheral airways are patent and normal in caliber. [id number] centrilobular emphysema. Interval development of numerous pulmonary nodules, suspicious for metastatic disease. Sales And Marketing Agent pulmonary nodules are as follows: 1. Spiculated 6 x 11 mm left lower lobe pulmonary nodule, image 224/5. 2. Somewhat spiculated right middle lobe pulmonary nodule measuring 9 mm, image 235/5. 3. 3 mm posterior right upper lobe pulmonary nodule, image 78/5. 4. 3 mm lateral right upper lobe pulmonary nodule, image 158/5. 5. 3 x 5 mm pulmonary nodule, right lower lobe, image 171/5. 6. 4 mm right lower lobe pulmonary nodule, image 190/5. 7. 6 mm right middle lobe pulmonary nodule, image 214/5. Mediastinum: Heart size is normal. No pericardial effusion. No mediastinal or hilar adenopathy by size criteria. Central pulmonary arteries are normal in size. Esophagus is normal in caliber. No hiatal hernias. Bones and chest wall: No axillary adenopathy by size criteria. Thyroid gland is unremarkable . No suspicious bony lesions. No vertebral body compression fractures. ABDOMEN: Vasculature: Celiac trunk and mesenteric arteries are patent. Renal arteries are also patent. Solid organs: Liver is normal in size and enhancement. Liver has a somewhat nodular surface pattern with suggestion of surface nodularity. This is consistent with cirrhotic change. There is inhomogeneity of enhancement of the right lobe which may represent irregular fatty infiltration. However, cannot exclude subtle infiltrative malignancy. Recommend multiphase MRI for further evaluation. Gallbladder is unremarkable . Biliary system is non dilated. Pancreas enhances normally. Spleen is normal in size and enhancement. No adrenal nodules. Both kidneys are normal in size and enhancement, without hydronephrosis. Peritoneum and bowel: No free fluid or air. Bowel loops are normal in caliber and wall thickness. Nodes and vessels: No retroperitoneal or mesenteric adenopathy by size criteria. Inferior vena cava is normal in morphology. Miscellaneous: No ventral hernias. PELVIS: Genitourinary: Bladder wall thickness is normal. Miscellaneous: No inguinal hernias or adenopathy. No ventral hernias. Bones: No suspicious bony lesions. No vertebral body compression fractures. IMPRESSION: 1. [id number] centrilobular emphysema. 2. Interval development of numerous pulmonary nodules, highly suspicious for metastatic disease. 3. Probable cirrhosis. Inhomogeneous enhancement pattern of the right lobe of the liver is of uncertain etiology. 4. Stable 4.6 cm ascending aortic aneurysm. Comment: Recommend multiphase liver MRI for further evaluation. Not exclude infiltrative malignancy of the liver. Also, recommend PET-CT for evaluation of pulmonary metastatic disease. Comment: An Urgent Findings note was created in PACS to ensure notification of the referring clinician. Dictated by: Jamel Morales M.D. on 07/01/2023 at 12:47 Approved by: Jamel Morales M.D. on 07/01/2023 at 13:09
== END ==
LOC: CT 09:08
PROVIDERS: PCP Family Medicine; Referring Provider Nurse Practitioner; Visit Provider Nurse Practitioner
DX: Q25.40 Congenital malformation of aorta unspecified (principal); I35.1 Nonrheumatic aortic (valve) insufficiency; I50.22 Chronic systolic (congestive) heart failure; J43.2 Centrilobular emphysema; R91.8 Other nonspecific abnormal finding of lung field; I71.40 Abdominal aortic aneurysm, without rupture, unspecified
CPT/HCPCS: 71275; 74174; Q9967

== ENCOUNTER 2024-03-28 10:41 | Emergency (ER) | payer MEDICARE, SELFPAY ==
[2021-08-19 21:14] VITALS: BMI 30.2
[2024-03-28] VITALS (22 sets, daily range): BP systolic 82–111; BP diastolic 47–66; PULSE 53–73; RESP 12–22; TEMP 36.5–36.6; O2SAT 66–100; BMI 22.2
--- NOTE | 2024-03-28 10:51 | PC.NURSE ---
Addendum entered by Miya Hernandez R.N. 03/28/24 11:03: Patient declined admission on , agreed and stayed for one night -. Original Note: See Oncologist at [facility]. Recent chemo change which is failing. Patient refused admission on 03/16. Patient presents jaundice, denies pain at this time, denies dizziness.
--- NOTE | 2024-03-28 11:00 | PC.NURSE ---
Patient port verified [employer] 8fr Port.
[2024-03-28] MEDS: SODIUM CHLORIDE 0.9% 1,000 ML 1000 ML IV (11:11)
--- NOTE | 2024-03-28 11:12 | ED_ITS ---
HPI - General Adult General Chief complaint: Weakness Stated complaint: Hypotensive Time Seen by Provider: 03/28/24 10:44 Source: patient Mode of arrival: Ambulatory History of Present Illness HPI narrative: Patient is a 68-year-old male who was sent from his primary doctor for evaluation of jaundice and hypotension. He had a follow-up with his primary doctor today after being admitted to the hospital about 1 week ago. This was at an outside facility. He was admitted because of low blood pressure. Patient does have a history of ?stomach cancer? and also ?liver cancer? he is undergoing treatment with Oncology. He states that about 20 days ago he received a new dose of chemotherapy which caused his jaundice. His oncologist nose about the jaundice. He was scheduled for further workup of this later on in the coming weeks. His family at bedside states that the jaundice is actually improving somewhat. He has had a decrease in oral intake recently. He states he just does not feel like he has an appetite and does not want to drink quite a bit of fluids. No chest pain, shortness of breath, abdominal pain, change in urinary symptoms. He states he does feel somewhat lightheaded. When they check his blood pressure at home his systolic blood pressure is normally in the 90s to 100 range. During his last admission to the hospital he stayed for approximately 24 hours. Received fluids and then was discharged. Related Data Home Medications Medication Instructions Recorded Confirmed losartan 100 mg tablet 50 mg PO DAILY 03/28/24 morphine 60 mg capsule,extended 60 mg PO Q12H 03/28/24 03/28/24 release pellets omeprazole 20 mg capsule,delayed 20 mg PO DAILY 03/28/24 03/28/24 release ondansetron 4 mg disintegrating 4 mg PO Q6H 03/28/24 03/28/24 tablet oxycodone 5 mg tablet 10 mg PO Q4H PRN 03/28/24 03/28/24 prochlorperazine maleate 10 mg 10 mg PO Q6H PRN 03/28/24 03/28/24 tablet sennosides 8.6 mg tablet (Natural 8.6 mg PO BID 03/28/24 03/28/24 Senna Laxative) Previous Rx's Medication Instructions Recorded aspirin 81 mg tablet,delayed 81 mg PO DAILY #90 tabs 08/29/21 release furosemide 20 mg tablet 20 mg PO DAILY PRN edema #60 tabs 09/30/23 metoprolol succinate 25 mg See Rx Instructions .Route 09/30/23 tablet,extended release 24 hr .COMPLEX #240 tabs spironolactone 50 mg tablet See Rx Instructions .Route 10/28/23 .COMPLEX #90 tabs albuterol sulfate 90 mcg/actuation 2 puff inhalation Q4H PRN 12/28/23 aerosol inhaler shortness of breath or wheezing #8.5 grams trazodone 50 mg tablet 50 mg PO BEDTIME PRN insomnia #30 02/25/24 tabs Allergies Allergy/AdvReac Type Severity Reaction Status Date / Time acetaminophen [From Tylenol] AdvReac Verified 03/28/24 10:49 Review of Systems Review of Systems ROS Unobtainable: All systems reviewed & are unremarkable except as noted in HPI and below Patient History Medical History Metastatic cancer to liver Bilateral lower extremity edema Allergies (~1959) Chronic back pain Chicken pox (~1959) Hepatitis C (~2000) GERD (gastroesophageal reflux disease) (~2010) Emphysema lung Hypertension Surgical History (Updated 09/03/21 @ 22:02 by Sadia Argueta) Anesthesia History of hand surgery (~1977) Family History (Updated 08/19/21 @ 22:03 by Laura Sandoval MD) Father Diabetes mellitus Daughter Diabetes mellitus Social History household members: none Smoking Status: Former smoker Smoking Status: Former smoker alcohol intake frequency: 3 or more drinks per day Substance Use Type: marijuana Exam Initial Vital Signs Initial Vital Signs: Vital Signs Pulse Rate 70 03/28/24 10:46 Respiratory Rate 16 03/28/24 10:46 Oxygen Delivery Method Room Air 03/28/24 10:46 HENMT Head: normal to inspection and normocephalic Resp Effort & Inspection: normal respiratory effort Auscultation: clear to auscultation bilaterally Cardio Rate: regular rate Rhythm: regular rhythm GI Inspection: normal to inspection and non-distended Palpation: soft and No tender Skin General: jaundice Neuro General: patient alert, patient awake, patient oriented x3 and moves all extremities Extrem General: normal to inspection and capillary refill normal Course Orders Ordered: ED Orders 03/28/24 11:10 Acetaminophen Stat Ammonia (NH3) Stat Basic Metabolic Panel Stat Complete Blood Count AUTO DIFF Stat Ethanol (ETOH) Stat Hepatic (Liver) Panel Stat Lactate (Lactic Acid) Stat Lipase Stat PTT Partial Thromboplastin Louie Stat Prothrombin Time INR Stat 03/28/24 13:10 Creatinine Urine Random Stat Ictotest Urine Stat Sodium Urine Random Stat Urine Culture Stat Urine Microscopic Stat 03/28/24 13:15 BMP [Basic Metabolic Panel] Stat Discontinued Medications Sodium Chloride (Normal Saline 0.9%) 1,000 mls @ 1,000 mls/hr IV BOLUS ONE Stop: 03/28/24 11:43 Last Infusion: 03/28/24 12:38 Dose: Infused Documented By: Admin: 03/28/24 11:11 Dose: 1,000 mls/hr Documented By: Vital Signs Vital signs: Vital Signs - 8 hr 03/28/24 10:46 03/28/24 10:47 03/28/24 10:50 Temperature Pulse Rate 70 73 67 Respiratory Rate 16 13 Blood Pressure Pulse Oximetry 66 L 96 Oxygen Delivery Method Room Air Oxygen Flow Rate 03/28/24 10:50 03/28/24 11:00 03/28/24 11:00 Temperature Pulse Rate 63 Respiratory Rate Blood Pressure 89/55 L 82/58 L Pulse Oximetry 90 L Oxygen Delivery Method Oxygen Flow Rate 03/28/24 11:08 03/28/24 11:09 03/28/24 11:09 Temperature 97.8 F Pulse Rate 62 Respiratory Rate 15 Blood Pressure 102/50 L Pulse Oximetry 99 Oxygen Delivery Method Oxygen Flow Rate 03/28/24 11:13 03/28/24 11:15 03/28/24 11:15 Temperature 97.7 F Pulse Rate 61 Respiratory Rate 14 Blood Pressure 92/52 L Pulse Oximetry 96 Oxygen Delivery Method Oxygen Flow Rate 03/28/24 11:30 03/28/24 11:30 03/28/24 11:35 Temperature Pulse Rate 59 L Respiratory Rate 14 Blood Pressure 99/53 L Pulse Oximetry 95 86 L Oxygen Delivery Method Room Air Room Air Oxygen Flow Rate 03/28/24 11:37 03/28/24 11:45 03/28/24 11:45 Temperature Pulse Rate 58 L Respiratory Rate 13 Blood Pressure 95/53 L Pulse Oximetry 95 100 Oxygen Delivery Method Nasal Cannula Nasal Cannula Oxygen Flow Rate 1 1 03/28/24 12:00 03/28/24 12:00 03/28/24 12:15 Temperature Pulse Rate 57 L 58 L Respiratory Rate 12 15 Blood Pressure 95/51 L Pulse Oximetry 99 94 Oxygen Delivery Method Oxygen Flow Rate 03/28/24 12:15 03/28/24 12:30 03/28/24 12:30 Temperature Pulse Rate 56 L Respiratory Rate Blood Pressure 98/47 L 91/47 L Pulse Oximetry 91 Oxygen Delivery Method Room Air Oxygen Flow Rate 03/28/24 12:46 03/28/24 12:46 03/28/24 13:00 Temperature Pulse Rate 54 L 53 L Respiratory Rate 16 13 Blood Pressure 86/47 L Pulse Oximetry 94 91 Oxygen Delivery Method Oxygen Flow Rate 03/28/24 13:15 03/28/24 13:15 03/28/24 13:30 Temperature Pulse Rate 58 L 59 L Respiratory Rate 14 14 Blood Pressure 91/66 Pulse Oximetry 99 96 Oxygen Delivery Method Oxygen Flow Rate 03/28/24 13:41 03/28/24 13:41 03/28/24 13:44 Temperature Pulse Rate 62 66 Respiratory Rate 15 22 Blood Pressure 101/52 L Pulse Oximetry 96 94 Oxygen Delivery Method Oxygen Flow Rate 03/28/24 13:45 03/28/24 13:45 Temperature Pulse Rate 59 L Respiratory Rate 13 Blood Pressure 111/57 L Pulse Oximetry 96 Oxygen Delivery Method Oxygen Flow Rate Medical Decision Making Lab Data 03/28/24 11:10 03/28/24 13:15 Labs: Lab Results 03/28/24 03/28/24 03/28/24 Range/Units 11:10 13:10 13:15 WBC 7.9 (4.5-11.0) X10^3/uL RBC 3.36 L (4.5-5.9) X10^6/uL Hgb 10.2 L (13.5-17.5) g/dL Hct 30.3 L (41-53) % MCV 90.4 (80-100) fL MCH 30.5 (26-34) PG MCHC 33.8 (30-36) % RDW 22.5 H (11.6-14.8) % Plt Count 461 H (150-400) X10^3/uL Neut % (Auto) Not Reportable Lymph % (Auto) Not Reportable [place] % (Auto) Not Reportable Eos % (Auto) Not Reportable Baso % (Auto) Not Reportable Lymph # (Auto) Not Reportable [place] # (Auto) Not Reportable Baso # (Auto) Not Reportable Total Counted 100 Seg Neutrophils % 66.0 (38-70) % Band Neutrophils % 3.0 (3-7) % Lymphocytes % (Manual) 19.0 L (25-45) % Monocytes % (Manual) 10.0 (2-11) % Eosinophils % (Manual) 1.0 L (2-4) % Myelocytes % 1.0 H (-0) % Neutrophils # (Manual) 5451 (4351-6989) /uL RBC Morphology See below Anisocytosis 1+ H PT 13.3 H (9.4-12.5) SECONDS INR 1.2 (0.9-1.3) APTT 34 (25.1-36.5) SECONDS Sodium 138 140 (137-145) mmol/L Potassium 4.7 5.1 (3.4-5.1) mmol/L Chloride 103 105 (98-107) mmol/L Carbon Dioxide 28 28 (22-32) mmol/L BUN 70 H 71 H (9-20) mg/dL Creatinine 3.30 H 3.10 H (0.66-1.25) mg/dL Estimated GFR 19 L 21 L (>60) mL/min BUN/Creatinine Ratio 21.2 22.9 H (6-22) Glucose 133 H 128 H (80-110) mg/dL Lactate 2.8 H 1.9 (0.7-2.1) mmol/L Calcium 8.4 8.1 L (8.4-10.2) mg/dL Total Bilirubin 23.8 H (0.2-1.3) mg/dL Conjugated Bilirubin 13.9 H (0.0-0.3) md/dL Unconjugated Bilirubin 1.9 H (0.0-1.1) mg/dL AST 131 H (17-59) IU/L ALT 102 H (<50) IU/L Alkaline Phosphatase 474 H (38-126) U/L Ammonia 35 H (9-30) umol/L Total Protein 6.2 L (6.3-8.2) g/dL Albumin 3.1 L (3.5-5.0) g/dL Globulin 3.1 (1.7-4.1) g/dL Albumin/Globulin Ratio 1.0 (1.0-2.8) Lipase 74 (23-300) U/L Ur Bilirubin Confirm Negative (Negative) Urine RBC 0-1/hpf (0-5/HPF) Urine WBC 1-5/hpf (0-5/HPF) Ur Squamous Epith Cells 1-5 /hpf (0-5/HPF) Urine Bacteria None seen (None) Ur Culture Indicated? Specimen cultured Vol Urine Centrifuged 10ml (spun) Ur Random Sodium 39 (30-90) mmol/L Urine Creatinine 99.34 mg/dL Acetaminophen < 10 (10-30) ug/mL Ethyl Alcohol < 10 ( - 10) mg/dL Urine Dip Bedside Urine Glucose Negative Bedside Urine Bilirubin + 1 Bedside Urine Ketone - Negative Urine Specific [place] 1.015 Bedside Urine Occult Blood ++ Bedside Urine pH 5.5 Bedside Urine Protein - Negative Bedside Urine Urobilinogen +/- 1mg Bedside Urine Nitrite - Negative Bedside Urine Leukocytes + 70 Esterase Point of care testing: Urine Dip Bedside Urine Glucose Negative Bedside Urine Bilirubin + 1 Bedside Urine Ketone - Negative Urine Specific [place] 1.015 Bedside Urine Occult Blood ++ Bedside Urine pH 5.5 Bedside Urine Protein - Negative Bedside Urine Urobilinogen +/- 1mg Bedside Urine Nitrite - Negative Bedside Urine Leukocytes + 70 Esterase MDM Narrative Medical decision making narrative: 68-year-old male with known multiple medical problems. Is jaundiced but his LFTs and bilirubin today are similar to when he was admitted to the hospital approximately 2 weeks ago. He had an MRCP at that time which showed no blockages but showed numerous liver masses. Patient has been followed by Oncology. He has an elevation in his creatinine today. His FENa calculates out as prerenal. After fluids it did improve slightly. He is still producing urine. He ambulated around the emergency department. He stated that he felt back to normal. He has not been eating and drinking well recently just because of the lack of appetite and I suspect that his low blood pressure today and his elevation in creatinine are most likely related to dehydration. This does seem to fit when he was admitted to the hospital about 2 weeks ago and receiving fluids his symptoms improve. We discussed admission to the hospital however the patient would like to be discharged home and I do not feel like this is unreasonable given his current situation. He was able to establish a follow-up visit with his primary care doctor's office on Thursday at 0130. Patient and family were given information for this. We discussed return precautions and follow-up instructions. He expressed understanding and agreement with plan. Discharge Plan Departure Patient Disposition: Home Clinical Impression: Jaundice, Dehydration, Acute kidney injury Instructions: DI for Dehydration -- Adult Activity Restrictions/Additional Instructions: It is important that you increase your fluid intake. I was able to schedule you a follow-up visit on March 30 that 1330 hours at the [address] [place] [address]. It is with DIONI Salmeron. I recommend this as a follow-up and also for repeat labs to make sure that your kidney function is improving with increased fluid intake. Return to the emergency department for new or worsening symptoms. Prescriptions: No Action furosemide 20 mg tablet 20 mg PO DAILY PRN (Reason: edema) Qty: 60 3RF metoprolol succinate 25 mg tablet extended release 24 hr See Rx Instructions .ROUTE .COMPLEX Qty: 240 3RF Dose Instruction: take 2 tablets by mouth twice a day Rx Instructions: take 2 tablets by mouth twice a day spironolactone 50 mg tablet See Rx Instructions .ROUTE .COMPLEX Qty: 90 3RF Dose Instruction: take 1 tablet by mouth once daily Rx Instructions: take 1 tablet by mouth once daily albuterol sulfate 90 mcg/actuation HFA aerosol inhaler 2 puff inhalation Q4H PRN (Reason: shortness of breath or wheezing) Qty: 8.5 1RF trazodone 50 mg tablet 50 mg PO BEDTIME PRN (Reason: insomnia) Qty: 30 1RF aspirin 81 mg tablet,delayed release (DR/EC) 81 mg PO DAILY Qty: 90 3RF losartan 100 mg tablet 50 mg PO DAILY morphine 60 mg capsule,extend.release pellets 60 mg PO Q12H omeprazole 20 mg capsule,delayed release(DR/EC) 20 mg PO DAILY ondansetron 4 mg tablet,disintegrating 4 mg PO Q6H prochlorperazine maleate 10 mg tablet 10 mg PO Q6H PRN sennosides [Natural Senna Laxative] 8.6 mg tablet 8.6 mg PO BID oxycodone 5 mg tablet 10 mg PO Q4H PRN Referrals: Alton Godoy MD [Primary Care Provider] - Stand Alone Forms: Patient Portal/API
[2024-03-28 11:35] LABS: Ammonia (NH3) 35 umol/L (9-30); Hematocrit 30.3 % (41-53); Hemoglobin 10.2 g/dL (13.5-17.5); Mean Corpuscular HGB Conc 33.8 % (30-36); Mean Corpuscular Hemoglobin 30.5 PG (26-34); Mean Corpuscular Volume 90.4 fL (80-100); Platelet Count 461 X10^3/uL (150-400); Red Blood Cell Count 3.36 X10^6/uL (4.5-5.9); Red Cell Distribution Width 22.5 % (11.6-14.8); White Blood Cell Count 7.9 X10^3/uL (4.5-11.0)
[2024-03-28 11:36] LABS: Add Manual Diff / Slide Review YES
[2024-03-28 11:37] LABS: Acetaminophen < 10 ug/mL (10-30); Alanine Aminotransferase 102 IU/L (<50); Albumin 3.1 g/dL (3.5-5.0); Alkaline Phosphatase 474 U/L (38-126); Aspartate Aminotransferase 131 IU/L (17-59); BUN Creatinine Ratio 21.2 (6-22); Bilirubin Conjugated 13.9 md/dL (0.0-0.3); Bilirubin Total 23.8 mg/dL (0.2-1.3); Bilirubin Unconjugated 1.9 mg/dL (0.0-1.1); Blood Urea Nitrogen 70 mg/dL (9-20); Calcium 8.4 mg/dL (8.4-10.2); Carbon Dioxide 28 mmol/L (22-32); Chloride 103 mmol/L (98-107); Estimated Glomerular Filt Rate 19 mL/min (>60); Ethanol (ETOH) < 10 mg/dL; Globulin 3.1 g/dL (1.7-4.1); Glucose 133 mg/dL (80-110); HEMOLYSIS < 15 (0-50); Lactate (Lactic Acid) 2.8 mmol/L (0.7-2.1); Lipase 74 U/L (23-300); Potassium 4.7 mmol/L (3.4-5.1); Sodium 138 mmol/L (137-145); Total Protein 6.2 g/dL (6.3-8.2)
[2024-03-28 11:53] LABS: INR 1.2 (0.9-1.3); PTT Partial Thromboplastin Tim 34 SECONDS (25.1-36.5); Prothrombin Time 13.3 SECONDS (9.4-12.5)
[2024-03-28 12:26] LABS: Neutrophils Absolute Manual 5451 /uL (3000-5900); Total Cells Counted 100
[2024-03-28 12:27] LABS: Anisocytosis 1+
[2024-03-28 12:55] LABS: Reflexed Lactate in 2 Hours Y
[2024-03-28 13:27] LABS: Ictotest Urine Negative (Negative); Urine Volume 10mL (spun)
[2024-03-28 13:30] LABS: Bacteria Urine None Seen; Culture Indicated Urine Specimen Cultured; RBC Urine 0-1/HPF (0-5/HPF); Squamous Epithelial Cell Urine 1-5 /HPF (0-5/HPF); WBC Urine 1-5/HPF (0-5/HPF)
[2024-03-28 13:32] LABS: Lactate 2HR (Lactic Acid Rflx) 1.9 mmol/L (0.7-2.1)
[2024-03-28 13:42] LABS: Creatinine Urine Random 99.34 mg/dL; Sodium Urine Random 39 mmol/L (30-90)
[2024-03-28 14:03] LABS: BUN Creatinine Ratio 22.9 (6-22); Blood Urea Nitrogen 71 mg/dL (9-20); Calcium 8.1 mg/dL (8.4-10.2); Carbon Dioxide 28 mmol/L (22-32); Chloride 105 mmol/L (98-107); Estimated Glomerular Filt Rate 21 mL/min (>60); Glucose 128 mg/dL (80-110); HEMOLYSIS 23 (0-50); Potassium 5.1 mmol/L (3.4-5.1); Sodium 140 mmol/L (137-145)
== END 2024-03-28 14:50 | disposition home or self-care (01) ==
PROVIDERS: Emergency Provider Emergency Medicine; PCP Family Medicine; Referring Provider Emergency Medicine
DX: R17 Unspecified jaundice (principal); E86.0 Dehydration; N17.9 Acute kidney failure, unspecified
CPT/HCPCS: 36415; 80048; 80076; 80320; 80329; 81003; 81015; 82140; 82570; 83605; 83690; 84300; 85007; 85025; 85610; 85730; 87086; 96361; 96374; 99284; G0480; J1642